=== PATIENT | female | born 2000 | race Caucasian/White ===

== ENCOUNTER 2021-07-24 13:41 | Emergency (ER) | payer MEDICAID, SELFPAY ==
[2021-07-24 13:42] VITALS: BP 130/78; PULSE 111; RESP 16; TEMP 36.7; O2SAT 97; BMI 36.8
--- NOTE | 2021-07-24 13:50 | ED.RN ---
PT. HERE FOR TEST. CAME FROM URGENT CARE AND WAS UNABLE TO AFFORD CO-PAY. PT. JUST MOVED FROM [place] AND NEEDS POSITIVE TEST CONFIRMATION TO GET HELP WITH SUBSIDIZED HOUSING AND MEDICAID SERVICES HERE IN [place].
--- NOTE | 2021-07-24 14:04 | EDS_ITS ---
HPI HPI - Female History of Present Illness Chief Complaint: Informant: patient Narrative Narrative: Patient presents to the ER requesting a test. She states her last menstrual period was on June 19. When she did not start this month she took several home test that she thinks may have been faintly positive. She had some nausea this morning. She denies abdominal cramping or spotting. PFSH PFSH Medical History Diabetes Hypertension Allergy/AdvReac Type Severity Reaction Status Date / Time No Known Allergies Allergy Verified 07/24/21 13:42 Social History Smoking Status: Unknown if ever smoked ROS ROS ED Constitutional Constitutional ED: Denies chills or fever(s) Eyes Eyes: Denies change in vision ENT ENT ED: Denies sore throat Cardiovascular Cardiovascular: Denies chest pain Respiratory/Chest Respiratory/Chest: Denies cough or dyspnea Gastrointestinal Gastrointestinal: Denies abdominal pain, nausea or vomiting Genitourinary Genitourinary ED: Denies dysuria Musculoskeletal Musculoskeletal: Denies back pain Integumentary Denies rash Neurologic Neurologic: Denies headache(s) or weakness Allergic/Immunologic Allergic/Immunologic ED: Denies urticaria EXAM Physical Exam Const Vital Signs: 07/24/21 13:42 Temperature 98.1 F Temperature Source Temporal Pulse Rate 111 H Respiratory Rate 16 Blood Pressure 130/78 H Blood Pressure Mean 95 Pulse Ox 97 Oxygen Delivery Method Room Air Positive well nourished and well developed General Appearance ED: well developed HEENT Reports normocephalic and head/scalp atraumatic Eyes PERRL and EOMs intact bilaterally Neck supple Chest Wall inspection of chest normal and palpation of chest normal Resp normal respiratory effort and clear to auscultation bilaterally Cardio regular rate and regular rhythm GI normal to inspection, nondistended, normoactive bowel sounds Palpation: soft Back/Spine no CVA tenderness Extremity normal to inspection Neuro oriented x3 and no sensory deficits noted Sensorium / Orientation: alert Motor Exam: strength 5/5 throughout Psych mental status grossly normal Skin no rashes or lesions noted MDM MDM MDM Narrative Medical decision making narrative: Urine test obtained here. Lab Data Labs: Laboratory Results - last 24 hr 07/24/21 14:14 Urine Test Positive H Treatment and Re-Evaluation Narrative: Urine test is positive. Patient is having no abdominal cramping or bleeding. She will be referred to Dr. Enriquez, on-call for no doc [employer] to establish care. Discharge Plan Triage Chief Complaint: ED Provider: Jennie Lieberman Dx/Rx/DC Orders Clinical Impression: Early stage of Instructions: ED , New Dx Primary Care Provider: Care Physician,No Primary Referrals: Abbey Chavez MD [STAFF PHYSICIAN] - 1-2 Weeks Care Physician,No Primary [Primary Care Provider] - Disposition Disposition: Home, Self Care
[2021-07-24 14:22] LABS: Internal QC Validated? YES +Cl - CLEAR BKGD
[2021-07-24 14:24] LABS: Pregnancy, Urine Positive Negative
== END 2021-07-24 14:36 | disposition home or self-care (01) ==
PROVIDERS: Emergency Provider Emergency Medicine; Visit Provider Emergency Medicine
DX: Z32.01 Encounter for pregnancy test, result positive (principal)
CPT/HCPCS: 81025; 99282

== ENCOUNTER 2021-08-09 14:00 | Emergency (ER) | payer MEDICAID, SELFPAY ==
[2021-08-09 14:01] VITALS: BP 128/73; PULSE 90; RESP 18; TEMP 36.6; O2SAT 100; BMI 35.2
--- NOTE | 2021-08-09 14:24 | EX.ED.DYSGE1 ---
HPI History of Present Illness Chief Complaint: Substance Abuse Informant: patient Narrative Narrative: 21-year-old female presenting to the emergency department requesting detox from heroin and meth. She states that she is 6 weeks and is working with 180. Patient states that she is not currently having any withdrawal because she smokes marijuana a couple hours before arriving to the ED. She is still smoking cigarettes and drinking alcohol. She is G2, P1. She does not have current visitation with her son [facility] Medical History Diabetes Hypertension Allergy/AdvReac Type Severity Reaction Status Date / Time No Known Allergies Allergy Verified 08/09/21 14:03 Social History (Updated 08/09/21 @ 14:[address] Ad Armenta DO) Smoking Status: Unknown if ever smoked substance use type: marijuana, heroin and methamphetamine ROS ROS ED Constitutional Constitutional ED: Denies chills, fever(s) or weight loss Eyes Eyes: Denies change in vision or diplopia ENT ENT ED: Denies ear pain, rhinorrhea or sore throat Cardiovascular Cardiovascular: Denies chest pain, orthopnea, palpitations or racing heartbeat Respiratory/Chest Respiratory/Chest: Denies cough, dyspnea or orthopnea Gastrointestinal Gastrointestinal: Denies abdominal pain, diarrhea, nausea or vomiting Genitourinary Genitourinary ED: Denies dysuria, hematuria or urinary frequency Musculoskeletal Musculoskeletal: Denies arthralgias or myalgias Integumentary Denies abscess or rash Neurologic Neurologic: Denies headache(s) or weakness Psychiatric Psychiatric: Denies anxiety, depression, suicidal ideation or suicidal thoughts Endocrine Endocrinology: Denies polydipsia, polyphagia or polyuria Allergic/Immunologic Allergic/Immunologic ED: Denies mouth swelling, tongue swelling or urticaria EXAM Physical Exam Const Vital Signs: 08/09/21 14:01 08/09/21 17:29 Temperature 98 F Temperature Source Temporal Pulse Rate 90 89 Respiratory Rate 18 17 Blood Pressure 128/73 H 124/72 H Blood Pressure Mean 91 89 Pulse Ox 100 99 Oxygen Delivery Method Room Air Room Air Positive well nourished, well developed and obese General Appearance ED: well developed Nutritional Appearance: obese HEENT Reports normocephalic, head/scalp atraumatic, TM's clear and moist mucous membranes Negative for trauma Tympanic Membrane ED: Yes TM's clear Eyes PERRL and EOMs intact bilaterally Neck no lymphadenopathy, supple and no JVD Resp normal respiratory effort and clear to auscultation bilaterally Cardio regular rate, regular rhythm and no murmurs GI normal to inspection, nondistended, normoactive bowel sounds and non-tender Palpation: soft Back/Spine no CVA tenderness and normal ROM Extremity normal to inspection General Extremety ED: Negative for edema General Extremity: Negative for edema Neuro oriented x3 and CN's II-XII intact bilaterally Sensorium / Orientation: alert Motor Exam: strength 5/5 throughout Psych mental status grossly normal Mood & Affect: Negative for depressed or tearful Skin no rashes or lesions noted and no wounds MDM MDM MDM Narrative Medical decision making narrative: Screening labs were obtained. White count 8.6 with a hemoglobin of 11.8. Tox screen positive for amphetamines MDMA and THC. Quantitative hCG was obtained and is 15,819. We currently do not provide detox services to patients. [facility] was contacted and has accepted the patient. Lab Data Attestation: I reviewed the patient's lab results. Labs: Laboratory Results - last 24 hr 08/09/21 08/09/21 08/09/21 15:10 15:10 15:10 WBC 8.6 RBC 4.44 Hgb 11.8 L Hct 37.0 MCV 83.3 MCH 26.6 L MCHC 31.9 L RDW Std Deviation 44.2 H RDW Coeff of Ofelia 14.7 H Plt Count 268 MPV 9.3 Immature Gran % (Auto) 0.400 Neut % (Auto) 65.4 Lymph % (Auto) 27.3 [place] % (Auto) 5.1 Eos % (Auto) 1.3 Baso % (Auto) 0.5 Absolute Neuts (auto) 5.6 Absolute Lymphs (auto) 2.34 Nucleated RBC % 0 Sodium 137 Potassium 3.3 L Chloride 104 Carbon Dioxide 27.0 Anion Gap 6 BUN 8 Creatinine 0.60 Estim Creat Clear Calc 127.00 Est GFR (MDRD) Af Amer 162 Est GFR (MDRD) Non-Af 134 BUN/Creatinine Ratio 13.4 Glucose 124 H Calcium 9.4 Total Bilirubin 1.00 AST 5 L ALT 16 Alkaline Phosphatase 57 Total Protein 8.0 Albumin 4.0 Globulin 4.0 Albumin/Globulin Ratio 1.0 HCG, Quant 51122 H Urine Opiates Screen Urine Methadone Screen Ur Barbiturates Screen Ur Phencyclidine Scrn Ur Amphetamines Screen MDMA (Ecstasy) Screen U Benzodiazepines Scrn Urine Cocaine Screen U Cannabinoids Screen Ur Drug Screen Comment Ethyl Alcohol 08/09/21 08/09/21 15:10 15:14 WBC RBC Hgb Hct MCV MCH MCHC RDW Std Deviation RDW Coeff of Ofelia Plt Count MPV Immature Gran % (Auto) Neut % (Auto) Lymph % (Auto) [place] % (Auto) Eos % (Auto) Baso % (Auto) Absolute Neuts (auto) Absolute Lymphs (auto) Nucleated RBC % Sodium Potassium Chloride Carbon Dioxide Anion Gap BUN Creatinine Estim Creat Clear Calc Est GFR (MDRD) Af Amer Est GFR (MDRD) Non-Af BUN/Creatinine Ratio Glucose Calcium Total Bilirubin AST ALT Alkaline Phosphatase Total Protein Albumin Globulin Albumin/Globulin Ratio HCG, Quant Urine Opiates Screen NEGATIVE Urine Methadone Screen NEGATIVE Ur Barbiturates Screen NEGATIVE Ur Phencyclidine Scrn NEGATIVE Ur Amphetamines Screen POSITIVE H MDMA (Ecstasy) Screen POSITIVE H U Benzodiazepines Scrn NEGATIVE Urine Cocaine Screen NEGATIVE U Cannabinoids Screen POSITIVE H Ur Drug Screen Comment Ethyl Alcohol 7.0 Discharge Plan Triage Chief Complaint: Substance Abuse ED Provider: Ad Armenta Dx/Rx/DC Orders Clinical Impression: First trimester , Opiate withdrawal Primary Care Provider: Care Physician,No Primary Referrals: Care Physician,No Primary [Primary Care Provider] - Disposition Disposition: Acute Care Hospital Discharge Location: [facility]
--- NOTE | 2021-08-09 15:10 | CM.ED ---
ELADIO Note Referral Source; RAMP Referral Reason: RAMP SW met with patient. Patient was on the phone texting and social work program coordinator asked her to put the phone down. Patient proceeded to text but then stopped. Patient said that she is homeless and the address of [address] is just a mailing address. Patient said that she uses 1/2 gram of heroin and meth 1 time as I don't like it .. but I used it in the past and stopped. Patient said that [facility] is going to help her with residential program or [facility]. SW asked patient about her plans and she said that she was going to [facility]. SW asked about transportation and patient said [employer]. During the conversation patient again began texting and social work program coordinator asked patient to not text so this real estate underwriter could focus on her and patient said well, I have to focus on my boyfriend. SW called Kavon and updated her regarding patient. Kavon was asked about transport to [place] and Kavon said that she talked to Flora about if patient gets done with detox and is going to the residental program then they will provide her transport from [place] to residential treatment program. Kavon asked this real estate underwriter to speak to patient about if she has ride to [facility]. Kavon inquired if patient's boyfriend will be going with her to [place]. SW spoke to patient. Patient said that she has no one to provide transportation and be a support. Patient said that she is linked with [facility]. SW discussed [facility] and offered to make a [facility] referral. Patient was open to [facility] referral however, patient said that she has only a mailing address and does not know where she will got at discharge from detox. SW discussed [facility] and the programming and stated that since patient is unsure where she will be at discharge SW will provide her with this information about how to make a [facility] referral and she can do it and patient verbalized understanding. Patient said that she would like for her boyfriend to go with her to detox but understands if he can't but would like him to be in the same building. Patient then said that she was scared. Emotional support provided. ELADIO spoke to Kavon from [facility]. [employer] bedoyad that [employer] will cover the cost of a taxi for patient to go to [facility]. She advised to bill [employer]. ELADIO updated MUSA Bello MD, promotional advertising assistantMUSA Sands, community service director that when patient is discharged a taxi can be secured for patient and bill sent to [facility]. Plan: Danielle KING
[2021-08-09 15:18] LABS: Absolute Lymphocyte Count 2.34 X10^3/uL (0.83-4.51); Absolute Neutrophil Count 5.6 X10^3/uL (2.0-7.7); Basophil# 0.04 X10^3/uL; Basophil% 0.5 % (0-1); Eosinophil# 0.11 X10^3/uL; Eosinophils% 1.3 % (0-5); Hemoglobin 11.8 g/dL (12.0-15.0); Lymphocyte # 2.34 X10^3/ul (0.83-4.51); Lymphocyte % 27.3 % (19-41); Mean Corp Hgb Conc 31.9 g/dL (32-36); Mean Corpuscular Hgb 26.6 pg (27.0-32.0); Mean Corpuscular Volume 83.3 fL (81-99); Mean Platelet Vol. 9.3 fl (6.2-12.0); Monocyte# 0.44 X10^3/uL; Monocyte% 5.1 % (0-10); NRBC Flagged by Analyzer 0 % (0-5); Neutrophil % 65.4 % (47-70); Platelet Count 268 K/mm3 (150-450); RBC Distribution Width CV 14.7 % (11.6-14.6); RBC Distribution Width SD 44.2 fl (35.1-43.9); Red Blood Count 4.44 M/mm3 (4.2-5.4); White Blood Count 8.6 K/mm3 (4.4-11.0)
[2021-08-09] MEDS: Acetaminophen 500 MG Tablet 1000 MG PO (15:33)
[2021-08-09 15:37] LABS: AST(SGOT) 5 U/L (15-37); Alanine Aminotransfer ALT/SGPT 16 U/L (13-56); Alkaline Phosphatase 57 U/L (45-117); Anion Gap 6 (5-15); BUN 8 mg/dL (7-18); BUN/Creat Ratio 13.4 RATIO (10-20); Calcium,Total 9.4 mg/dL (8.5-10.1); Chloride 104 mmol/L (98-107); EST Glomerular Filtration Rate 134 mL/min (>60); Est Glom Filt Rate - Afr Amer 162 mL/min (>60); Glucose 124 mg/dL (74-106); Potassium 3.3 mmol/L (3.5-5.1); Sodium Level 137 mmol/L (136-145)
[2021-08-09 15:42] LABS: Amphetamine Urine VISTA POSITIVE (<1000 ng/mL); Barbiturate Urine VISTA NEGATIVE (< 200 ng/mL); Benzodiazepine Urine VISTA NEGATIVE (< 200 ng/mL); Cocaine Urine VISTA NEGATIVE (< 300 ng/mL); Ecstacy Urine VISTA POSITIVE (< 500 ng/mL); Methadone Urine VISTA NEGATIVE (< 300 ng/mL); PCP Urine VISTA NEGATIVE (< 25 ng/mL); THC Urine VISTA POSITIVE (< 50 ng/mL); Vista UDS pH Range 4
[2021-08-09 17:03] LABS: hCG Titer Quant., Serum 15819 mIU/mL (1-3)
[2021-08-09 17:29] VITALS: BP 124/72; PULSE 89; RESP 17; O2SAT 99
--- NOTE | 2021-08-09 18:23 | CM.ED ---
ELADIO was advised by Julia that [facility] needs [employer] to call for approval to pay for cab to [facility]. ELADIO called Casi, treatment Navigator and requested that she call [facility] for patient to go to [facility]. ELADIO was advised that [employer] had called [facility]. ELADIO confirmed with Julia that patient is going to [facility] as Casi called back to ensure that patient goes to [facility] ED. Casi said that they generally put detox on antepartum unit. Plan: [facility] Ani KING
== END 2021-08-09 18:55 | disposition short-term general hospital (02) ==
PROVIDERS: Emergency Provider Emergency Medicine; Visit Provider Emergency Medicine
DX: O99.321 Drug use complicating pregnancy, first trimester (principal); F11.23 Opioid dependence with withdrawal; F12.90 Cannabis use, unspecified, uncomplicated; Z3A.01 Less than 8 weeks gestation of pregnancy; O99.211 Obesity complicating pregnancy, first trimester; E66.9 Obesity, unspecified
CPT/HCPCS: 80053; 80307; 82077; 84702; 85025; 87426; 99285

== ENCOUNTER 2021-09-28 11:08 | Emergency (ER) | payer MEDICAID, SELFPAY ==
[2021-09-28 11:09] VITALS: BP 138/89; PULSE 76; RESP 16; TEMP 36.8; O2SAT 100; BMI 36.8
--- NOTE | 2021-09-28 11:29 | EDS_ITS ---
HPI History of Present Illness Chief Complaint: Rash Informant: patient Onset/Context/Timing Onset: Today Current Severity: Mild Maximum Severity: Mild Narrative Narrative: Patient presents with petechial rash on her face and neck that she noted this morning. No pain. She is currently 13 weeks states that she has been vomiting quite a bit recently. [facility] Medical History Diabetes Hypertension Home Medications aspirin 81 mg capsule 81 mg PO DAILY 09/28/21 [History Last Taken Unknown] vit no.95-ferrous fumarate 28 mg-folic acid 800 mcg tablet () 1 tab PO DAILY 09/28/21 [History Last Taken Unknown] Allergy/AdvReac Type Severity Reaction Status Date / Time No Known Allergies Allergy Verified 09/28/21 11:11 Social History Smoking Status: Current every day smoker tobacco type: cigarettes substance use type: marijuana, heroin and methamphetamine ROS ROS ED Constitutional Constitutional ED: Denies chills or fever(s) Eyes Eyes: Denies change in vision or discharge from eye(s) ENT ENT ED: Denies discharge from eye(s), rhinorrhea or sore throat Cardiovascular Cardiovascular: Denies chest pain or palpitations Respiratory/Chest Respiratory/Chest: Denies cough or dyspnea Gastrointestinal Gastrointestinal: Reports nausea and vomiting; Denies abdominal pain or diarrhea Genitourinary Genitourinary ED: Denies difficulty urinating or dysuria Musculoskeletal Musculoskeletal: Denies back pain or extremity pain Integumentary Reports rash; Denies Abrasions Neurologic Neurologic: Denies headache(s) or weakness Psychiatric Psychiatric: Denies anxiety or depression Allergic/Immunologic Allergic/Immunologic ED: Denies lip swelling or urticaria EXAM Physical Exam Const Vital Signs: 09/28/21 11:09 Temperature 98.3 F Temperature Source Temporal Pulse Rate 76 Respiratory Rate 16 Blood Pressure 138/89 H Blood Pressure Mean 105 Pulse Ox 100 Oxygen Delivery Method Room Air Positive well nourished and well developed General Appearance ED: well developed HEENT Reports moist mucous membranes Chest Wall inspection of chest normal and palpation of chest normal Resp normal respiratory effort and clear to auscultation bilaterally Cardio regular rate and regular rhythm GI normal to inspection, nondistended, normoactive bowel sounds and non-tender Neuro oriented x3 Skin Skin Narrative: Petechial lesions noted on the face and neck. This is most likely secondary to her vomiting. MDM MDM MDM Narrative Medical decision making narrative: Secondary to the patient's petechiae a CBC was obtained to ensure normal platelet count. Lab Data Labs: Laboratory Results - last 24 hr 09/28/21 11:35 WBC 8.7 RBC 4.16 L Hgb 10.7 L Hct 34.0 L MCV 81.7 MCH 25.7 L MCHC 31.5 L RDW Std Deviation 45.1 H RDW Coeff of Ofelia 15.3 H Plt Count 261 MPV 8.6 Immature Gran % (Auto) 0.500 Neut % (Auto) 68.4 Lymph % (Auto) 23.4 Person % (Auto) 5.5 Eos % (Auto) 1.7 Baso % (Auto) 0.5 Absolute Neuts (auto) 6.0 Absolute Lymphs (auto) 2.04 Nucleated RBC % 0 Treatment and Re-Evaluation Narrative: CBC is unremarkable with platelet count of 261,000. Patient has Zofran at home that she can use for nausea. Discharge Plan Triage Chief Complaint: Rash ED Provider: Jennie Lieberman Dx/Rx/DC Orders Clinical Impression: Petechial rash, Vomiting Instructions: ED Vomiting (Adult), ED Petechiae (Child) Prescriptions: No Action PNV cmb#95-ferrous fumarate-FA [] 28 mg iron- 800 mcg tablet 1 tab PO DAILY aspirin 81 mg Capsule 81 mg PO DAILY Primary Care Provider: Care Physician,No Primary Referrals: Abbey Chavez MD [STAFF PHYSICIAN] - Keep [facility] appointment Care Physician,No Primary [Primary Care Provider] - Disposition Disposition: Home, Self Care
[2021-09-28 11:43] LABS: Absolute Lymphocyte Count 2.04 X10^3/uL (0.83-4.51); Basophil# 0.04 X10^3/uL; Basophil% 0.5 % (0-1); Eosinophil# 0.15 X10^3/uL; Eosinophils% 1.7 % (0-5); Hemoglobin 10.7 g/dL (12.0-15.0); Lymphocyte # 2.04 X10^3/ul (0.83-4.51); Lymphocyte % 23.4 % (19-41); Mean Corp Hgb Conc 31.5 g/dL (32-36); Mean Corpuscular Hgb 25.7 pg (27.0-32.0); Mean Corpuscular Volume 81.7 fL (81-99); Mean Platelet Vol. 8.6 fl (6.2-12.0); Monocyte# 0.48 X10^3/uL; Monocyte% 5.5 % (0-10); NRBC Flagged by Analyzer 0 % (0-5); Neutrophil # 5.96 X10^3/uL (2.7-7.7); Neutrophil % 68.4 % (47-70); Platelet Count 261 K/mm3 (150-450); RBC Distribution Width CV 15.3 % (11.6-14.6); RBC Distribution Width SD 45.1 fl (35.1-43.9); Red Blood Count 4.16 M/mm3 (4.2-5.4); White Blood Count 8.7 K/mm3 (4.4-11.0)
[2021-09-28 12:36] VITALS: RESP 16
== END 2021-09-28 12:37 | disposition home or self-care (01) ==
PROVIDERS: Emergency Provider Emergency Medicine; Visit Provider Emergency Medicine
DX: O99.891 Other specified diseases and conditions complicating pregnancy (principal); R23.3 Spontaneous ecchymoses; O21.9 Vomiting of pregnancy, unspecified; O99.331 Smoking (tobacco) complicating pregnancy, first trimester; F17.210 Nicotine dependence, cigarettes, uncomplicated; Z3A.13 13 weeks gestation of pregnancy; Z79.82 Long term (current) use of aspirin
CPT/HCPCS: 85025; 99282

== ENCOUNTER → 2022-01-12 | Outpatient (CLI) | payer MEDICAID, SELFPAY ==
[2022-01-12 16:03] VITALS: BP 130/88; PULSE 109; RESP 14; TEMP 36.4; O2SAT 100; BMI 39.6
[2022-01-12] MEDS: Penicillin G Benzathine 2.4 MU/4 ML Syringe IM (16:09)
== END | disposition home or self-care (01) ==
LOC: MEDOUTP 15:56
PROVIDERS: Referring Provider Obstetrics & Gynecology; Visit Provider Obstetrics & Gynecology
DX: O98.119 Syphilis complicating pregnancy, unspecified trimester (principal)
CPT/HCPCS: 96372

== ENCOUNTER 2022-03-01 16:35 | Outpatient (CLI) | payer MEDICAID, SELFPAY ==
[2022-03-01] VITALS (20 sets, daily range): BP systolic 127–156; BP diastolic 58–75; PULSE 100–133; TEMP 36.2–36.6; O2SAT 93–98; BMI 40.8
[2022-03-01 17:33] LABS: Hematocrit 33.7 % (37-47); Hemoglobin 10.7 g/dL (12.0-15.0); Mean Corp Hgb Conc 31.8 g/dL (32-36); Mean Corpuscular Volume 78.7 fL (81-99); Mean Platelet Vol. 9.5 fl (6.2-12.0); Platelet Count 253 K/mm3 (150-450); RBC Distribution Width CV 14.7 % (11.6-14.6); RBC Distribution Width SD 41.8 fl (35.1-43.9); Red Blood Count 4.28 M/mm3 (4.2-5.4); White Blood Count 9.4 K/mm3 (4.4-11.0)
[2022-03-01 17:45] LABS: Protein, Urine (Random) 24.3 mg/dL (<11.9); Protein:Creat Ratio 100 mg/g CRE (0-200)
[2022-03-01 17:48] LABS: Amphetamine Urine VISTA NEGATIVE (<1000 ng/mL); Barbiturate Urine VISTA NEGATIVE (< 200 ng/mL); Benzodiazepine Urine VISTA NEGATIVE (< 200 ng/mL); Cocaine Urine VISTA NEGATIVE (< 300 ng/mL); Ecstacy Urine VISTA NEGATIVE (< 500 ng/mL); Methadone Urine VISTA NEGATIVE (< 300 ng/mL); PCP Urine VISTA NEGATIVE (< 25 ng/mL); THC Urine VISTA POSITIVE (< 50 ng/mL); Vista UDS pH Range 4
[2022-03-01 18:45] LABS: AST(SGOT) 3 U/L (15-37); Alanine Aminotransfer ALT/SGPT 12 U/L (13-56); Creatinine, Serum 0.52 mg/dL (0.55-1.02); EST Glomerular Filtration Rate 154 mL/min (>60); Est Glom Filt Rate - Afr Amer 187 mL/min (>60); Estimated Creatinine Clearance 146.54 ml/min
--- NOTE | 2022-03-01 19:59 | OB.TRI.HP_ITS ---
HPI - General HPI Narrative CLAIR BRADY, is a 21 F at 35.1 weeks gestation who presents with a headache that started earlier today. She denies any visual changes, RUQ pain or swelling. Patient seen at bedside for evaluation. Maternal Data Information DANTE Calculator Estimated Delivery Date Method Current WG Current Estimate 04/04/22 Manual 35w 1d PFSH PFSH Medical History Diabetes Hypertension Home Medications aspirin 81 mg capsule 81 mg PO DAILY 09/28/21 [History Last Taken 02/24/22] vit no.95-ferrous fumarate 28 mg-folic acid 800 mcg tablet () 1 tab PO DAILY 09/28/21 [History Last Taken 02/24/22] Allergy/AdvReac Type Severity Reaction Status Date / Time No Known Allergies Allergy Verified 03/01/22 20:16 Social History Smoking Status: Current every day smoker tobacco type: cigarettes substance use type: marijuana, heroin and methamphetamine OB Visit Details Medical History Medical History: Positive: Diabetes and Hypertension Visit Details OB Flowsheet Initial Weight: Not Recorded Date -?-?-?-?-?-?-?-?-?-?-?-?- EGA Weight BP Urine Prot -?-?-?-?-?-?-?-?-?-?-?-?- Glucose FHR FuHt Pres Dilation -?-?-?-?-?-?-?-?-?-?-?-?- Effaced St Visit Note 03/01/22 -?-?-?-?-?-?-?-?-?-?-?-?- 35w 1d 238 lb 1.588 oz 127/ 67 131/58 151/67 139/65 127/58 135/63 156/75 149/66 130/72 136/65 -?-?-?-?-?-?-?-?-?-?-?-?- -?-?-?-?-?-?-?-?-?-?-?-?- ROS Eyes Eyes: Denies blurry vision Cardiovascular Cardiovascular: Reports none; Denies chest pain at rest, chest pain with activity or dizziness Respiratory/Chest Respiratory/Chest: Denies cough or dyspnea Gastrointestinal Gastrointestinal: Reports none and other; Denies diarrhea or vomiting Genitourinary Genitourinary: Denies dysuria Musculoskeletal Musculoskeletal: Reports none Integumentary Integumentary: Reports none; Denies rash Neurologic Neurologic: Denies dizziness, headache(s) or other visual disturbances Psychiatric Psychiatric: Reports none Physical Exam Const alert and no apparent distress General Appearance: cooperative Orientation / Consciousness: awake Exam Limitations: no limitations HEENT normocephalic Eyes General Eye: normal appearance of both eyes Neck full ROM Chest inspection of chest normal Resp normal respiratory effort and normal air movement Effort and Inspection: symmetric chest movement Auscultation: clear to auscultation bilaterally Cardio regular rate GI soft to palpation, non-tender and non-distended Inspection: and other Back/Spine normal ROM Extremity full ROM, normal capillary refill and no calf tenderness Skin no rashes or lesions noted Neuro oriented x3 and CN's II-XII intact bilaterally Psych mental status grossly normal NST FHR Rate Baby A Baseline: 140 Variability:: Moderate Accelerations:: 15 x 15 Decelerations:: None NST Reactive:: Yes Uterine Activity:: irritability Assessment & Plan (1) Headache: (2) 35 weeks gestation of : (3) Type 2 diabetes mellitus: (4) Chronic hypertension: (5) History of pre-eclampsia: (6) Obesity: (7) Tobacco use affecting , antepartum: (8) History of drug use: (9) Marijuana use during : PLAN: Plan BP within normal ranges PIH labs negative Tylenol 1000 mg PO x 1 now for headache NST reactive Hx of Chronic HTN and Type 2 DM- no medications or monitoring D/C home with follow up this week in office for NST/BRISA PTL and preeclampsia precautions reviewed with patient
== END 2022-03-01 20:13 | disposition home or self-care (01) ==
LOC: WPOUT 16:38 → WP 16:39
PROVIDERS: Visit Provider Advanced Practice Midwife
DX: O99.891 Other specified diseases and conditions complicating pregnancy (principal); F12.99 Cannabis use, unspecified with unspecified cannabis-induced disorder; O99.323 Drug use complicating pregnancy, third trimester; R51.9 Headache, unspecified; O24.113 Pre-existing type 2 diabetes mellitus, in pregnancy, third trimester; O10.913 Unspecified pre-existing hypertension complicating pregnancy, third trimester; O99.213 Obesity complicating pregnancy, third trimester; O99.333 Smoking (tobacco) complicating pregnancy, third trimester; F17.210 Nicotine dependence, cigarettes, uncomplicated; Z3A.35 35 weeks gestation of pregnancy; Z79.82 Long term (current) use of aspirin; Z87.59 Personal history of other complications of pregnancy, childbirth and the puerperium
CPT/HCPCS: 36415; 59025; 59050; 80307; 82565; 82570; 84156; 84450; 84460; 84550; 85027; 99218; G0378

== ENCOUNTER 2022-03-10 01:47 | Outpatient (CLI) | payer MEDICAID, SELFPAY ==
[2022-03-10 02:16] VITALS: PULSE 115; O2SAT 97
[2022-03-10 02:21] VITALS: BP 118/58; PULSE 108
[2022-03-10 02:38] VITALS: BMI 40.9
[2022-03-10] MEDS: Lactated Ringers 1,000 ML 999 ML IV (03:45)
[2022-03-10 03:55] LABS: Color, Urine Yellow (Yellow); Glucose, Dipstick 50 mg/dl (Normal); Ketone-Dipstick 5 mg/dl (Negative); Leukocyte Esterase-Dipstick 25 /ul (Negative); Nitrite-Dipstick Negative (Negative); Occult Blood-Urine Negative /ul (Negative); Protein-Dipstick 15 mg/dl (Negative); Specific Gravity, Urine 1.025 (1.002-1.030); Urine Bilirubin Dipstick Negative (Negative); Urine Clarity Clear (Clear); Urine Urobilinogen Normal (Normal)
[2022-03-10] MEDS: Acetaminophen 500 MG Tablet 1000 MG PO (03:56)
[2022-03-10 04:04] LABS: Amphetamine Urine VISTA NEGATIVE (<1000 ng/mL); Barbiturate Urine VISTA NEGATIVE (< 200 ng/mL); Benzodiazepine Urine VISTA NEGATIVE (< 200 ng/mL); Cocaine Urine VISTA NEGATIVE (< 300 ng/mL); Ecstacy Urine VISTA NEGATIVE (< 500 ng/mL); Methadone Urine VISTA NEGATIVE (< 300 ng/mL); PCP Urine VISTA NEGATIVE (< 25 ng/mL); THC Urine VISTA POSITIVE (< 50 ng/mL); Vista UDS pH Range 5
--- NOTE | 2022-03-10 07:08 | OB.TRI.NOTE ---
HPI - General HPI Narrative CLAIR BRADY, is a 21 F at 36 weeks gestation who presents with lower back pain and pelvic cramping that started yesterday. She stated she has been nauseated and had several emesis today. Has not been eating or drinking much. Positive movement. Denies any loss of fluid or vaginal bleeding. Maternal Data Information DANTE Calculator Estimated Delivery Date Method Current WG Current Estimate 04/04/22 Manual 37w 0d PFSH PFSH Medical History Diabetes Hypertension Home Medications aspirin 81 mg capsule 81 mg PO DAILY 09/28/21 [History Last Taken 02/24/22] vit no.95-ferrous fumarate 28 mg-folic acid 800 mcg tablet () 1 tab PO DAILY 09/28/21 [History Last Taken 03/09/22] Allergy/AdvReac Type Severity Reaction Status Date / Time No Known Allergies Allergy Verified 03/10/22 02:39 Social History Smoking Status: Current every day smoker tobacco type: cigarettes substance use type: marijuana, heroin and methamphetamine ROS Eyes Eyes: Denies blurry vision Cardiovascular Cardiovascular: Reports none; Denies chest pain at rest, chest pain with activity or dizziness Respiratory/Chest Respiratory/Chest: Denies cough or dyspnea Gastrointestinal Gastrointestinal: Reports other Genitourinary Genitourinary: Denies dysuria Musculoskeletal Musculoskeletal: Reports none Integumentary Integumentary: Reports none; Denies rash Neurologic Neurologic: Denies dizziness, headache(s) or other visual disturbances Psychiatric Psychiatric: Reports none Physical Exam Const alert and no apparent distress General Appearance: cooperative Orientation / Consciousness: awake Exam Limitations: no limitations HEENT normocephalic Eyes General Eye: normal appearance of both eyes Neck full ROM Chest inspection of chest normal Resp normal respiratory effort and normal air movement Effort and Inspection: symmetric chest movement Auscultation: clear to auscultation bilaterally Cardio regular rate GI soft to palpation, non-tender and non-distended Inspection: and other Back/Spine normal ROM Extremity full ROM, normal capillary refill and no calf tenderness Skin no rashes or lesions noted Neuro oriented x3 and CN's II-XII intact bilaterally Psych mental status grossly normal Assessment & Plan (1) Marijuana use during : (2) Tobacco use affecting , antepartum: (3) Obesity: (4) History of pre-eclampsia: (5) 36 weeks gestation of : (6) Back pain: (7) Cramping affecting , antepartum: PLAN: Plan Start IV fluids and give LR 1000 ml- dehydration UA- positive for ketones, glucose CE- unchanged after prolonged monitoring NST reactive, cat. 1 tracing Patient reports feeling better after IV fluids D/C home with follow up in office this week
[2022-03-10 07:43] LABS: Group B Strep DNA By PCR POSITIVE (Negative); Probe Check PASS
== END 2022-03-10 05:44 | disposition home or self-care (01) ==
LOC: WPOUT 01:51 → WP 01:52
PROVIDERS: Visit Provider Advanced Practice Midwife
DX: O26.893 Other specified pregnancy related conditions, third trimester (principal); E11.9 Type 2 diabetes mellitus without complications; O99.331 Smoking (tobacco) complicating pregnancy, first trimester; M54.9 Dorsalgia, unspecified; E66.9 Obesity, unspecified; O99.211 Obesity complicating pregnancy, first trimester; F17.210 Nicotine dependence, cigarettes, uncomplicated; Z3A.36 36 weeks gestation of pregnancy; R25.2 Cramp and spasm
CPT/HCPCS: 96374; 96361; 59025; 59050; 80307; 81002; 87653; J7120

== ENCOUNTER 2022-03-17 07:08 | Inpatient (IN) | payer MEDICAID, SELFPAY ==
[2022-03-17] VITALS (47 sets, daily range): BP systolic 96–147; BP diastolic 42–97; PULSE 83–125; RESP 16–18; TEMP 35.9–36.7; O2SAT 91–99; BMI 41.7
--- NOTE | 2022-03-17 | PLAC_PTH ---
PATIENT: CLAIR BRADY LOC: [facility] U#:[id number] AGE/SX: 21/ ROOM: WP003 RE03/17/[address]: Dr. Margaret Toscano DO : 2000 BED: 1 DIS: 03/20/2022 SPEC #: [id number] RECD: 03/17/22 23:12 STATUS: NACHO REQ #: [id number] TOBI: 03/17/22 00:[address]: Margaret Toscano DEPT: SURGICAL PATHOLOGY RECD BY: Neal Acevedo ENTERED: 03/18/22 14:00 SP TYPE: PLACENTA OTHR DR: MD Dr. Abbey Vazquez MD Dr. Robert Leininger, MD No Primary Care Phys Tissues: Placenta, NOS Procedures: Surgery Specimen Level V HEADER OPERATION: Primary section PRE-OP DIAGNOSIS: Uncontrolled diabetes TISSUE SUBMITTED: Placenta MICROSCOPIC DIAGNOSIS Placenta: Placental disc - third trimester placenta (561 gm). Membranes - no pathologic diagnosis. Umbilical cord - three blood vessels and no pathologic diagnosis. DAVID:helder 03/23/2022 MICROSCOPIC DESCRIPTION Slides are reviewed. GROSS DESCRIPTION SPECIMEN: PLACENTA / CLINICAL INFORMATION: A. Weight: 3.04 kg B. Gestational Age: 37 weeks C. Sex: Female PLACENTAL WEIGHT (POST FIXATION): 561 gm PLACENTAL DIMENSIONS: 16 x 14 x 5 cm PLACENTAL SHAPE: Usual ovoid PLACENTAL WEIGHT FOR GESTATIONAL AGE: Within 10-99th percentile MEMBRANES - Present A. Insertion: Marginal B. Site of rupture from edge: At edge of placental disc C. Color of membrane: Garcia-toney D. Abnormalities: None UMBILICAL CORD - Present A. Color: Garcia-toney B. Insertion: Central C. Length: 37 cm D. Diameter: 1.1 cm E. Number of vessels: Three F. Abnormalities: Slight increased spiraling is noted. PLACENTAL DISC - Present A. Color of surface: Garcia-toney B. surface abnormalities: None C. Maternal cotyledons: Intact with minimal tears D. Attached retro placental clot: No clot E. Cut surface: Dark red and spongy F. Lesions: None G. Separate clot: Absent SECTIONS SUBMITTED: 1. Membrane roll 2. Cord, maternal end 3. Cord, end 4. Placental disc, and maternal surfaces 5. Placental disc, and maternal surfaces 6. Placental disc, and maternal surfaces SJ:helder 03/22/2022 TC:4 CPT: 96656
--- NOTE | 2022-03-17 08:26 | PCM.HP.OB ---
HPI - General General Date of Admission: 03/17/22 Date of Service: 03/17/22 Chief Complaint: induction HPI Narrative CLAIR BRADY, is a 21 F who presents for a scheduled induction of labor. at 37w3d. She offers no complaints today. Denies AGUILAR, vision changes, upper abd pain, ctx, vb, lof. Good FM. Maternal Data Information DANTE Calculator Estimated Delivery Date Method Current WG Current Estimate 04/04/22 Manual 37w 3d PFSH PFS Medical History Diabetes Hypertension Home Medications aspirin 81 mg capsule 81 mg PO DAILY pre-eclampsia 09/28/21 [History Last Taken 02/24/22] vit no.95-ferrous fumarate 28 mg-folic acid 800 mcg tablet () 1 tab PO DAILY 09/28/21 [History Last Taken 03/09/22] Allergy/AdvReac Type Severity Reaction Status Date / Time No Known Allergies Allergy Verified 03/17/22 08:01 Social History Smoking Status: Heavy Smoker (>10/day) substance use type: marijuana, heroin and methamphetamine History Elective abortions Hx Para 1 Spontaneous abortions Hx # Term Pregnancies Ectopic pregnancies Hx # Pregnancies Multiple births # of living children Addt'l History: Limited care in the office with housing and transportation issues. Social work was never able to contact the patient. History of type 2 diabetes: She did not check blood sugars during the , and therefore was not on medication. Most recent Hgb a1c 5.7 and random glucose 127. History of bipolar disorder: Has not been on medication or well establish with psych. History of cHTN: baby ASA in , not on medication. History of drug use: Meth, heroin, and ecstasy. History of Syphilis in : Was treated 12/2021 and most recent titer 1:4. Vital Signs Vital Signs Vital Signs: 03/17/22 07:57 03/17/22 07:57 03/17/22 07:57 Temperature Temperature Source Pulse Rate 108 H Blood Pressure 126/70 H BP Systolic 126 BP Diastolic 70 Pulse Ox 98 03/17/22 07:57 03/17/22 07:57 Temperature 97.0 F L Temperature Source Temporal Pulse Rate Blood Pressure BP Systolic BP Diastolic Pulse Ox Weight Weight: 242 lb 15.19 oz Body Mass Index (BMI) 41.7 Labs Labs Labs: Hct 33.7 % (37-47) L Hgb 10.7 g/dL (12.0-15.0) L Group B Strep DNA POSITIVE (Negative) H Assessment & Plan (1) 37 weeks gestation of : PLAN: - Discussed r/b/a to induction of labor and pt desires to proceed. High risk with limited care (2) Type 2 diabetes mellitus: PLAN: - Was not monitoring BG during - Diabetic protocol - Discussed may need insulin gtt (3) History of pre-eclampsia: PLAN: - Pre e labs on admission - No symptoms of pre e (4) Chronic hypertension: PLAN: - BP normal on admission (5) Obesity: (6) Tobacco use affecting , antepartum: (7) History of drug use: PLAN: - Drug screen on admission (8) Marijuana use during : (9) History of syphilis: PLAN: - Consult placed to ID - Co management with MFM during and RPR titers were followed (10) History of chlamydia: PLAN: - CRUZ negative - GC/CT on admission (11) Limited care: PLAN: - Social work to see (12) History of herpes genitalis: PLAN: - Pt not on prophylaxis - She denies prodromal symptoms or active outbreak. No HSV lesions seen on exam today (13) History of bipolar disorder: (14) History of hemorrhage: (15) Encounter for planned induction of labor: PLAN: - Start pitocin per protocol - Epidural PRN - Vertex on admission - Expected EFW < 4500 g and pelvis adequate. Anticipate vaginal delivery - Rapid GBS and GBS cx given status unknown
[2022-03-17 08:38] LABS: Protein, Urine (Random) 17.1 mg/dL (<11.9); Protein:Creat Ratio 108 mg/g CRE (0-200)
[2022-03-17] MEDS: Lactated Ringers 1,000 ML 50 ML IV (08:41)
[2022-03-17 08:42] LABS: Amphetamine Urine VISTA NEGATIVE (<1000 ng/mL); Barbiturate Urine VISTA NEGATIVE (< 200 ng/mL); Benzodiazepine Urine VISTA NEGATIVE (< 200 ng/mL); Cocaine Urine VISTA NEGATIVE (< 300 ng/mL); Ecstacy Urine VISTA NEGATIVE (< 500 ng/mL); Methadone Urine VISTA NEGATIVE (< 300 ng/mL); PCP Urine VISTA NEGATIVE (< 25 ng/mL); THC Urine VISTA POSITIVE (< 50 ng/mL); Vista UDS pH Range 5
[2022-03-17 08:55] LABS: Absolute Lymphocyte Count 1.83 X10^3/uL (0.83-4.51); Basophil# 0.03 X10^3/uL; Basophil% 0.3 % (0-1); Eosinophil# 0.22 X10^3/uL; Eosinophils% 2.3 % (0-5); Hematocrit 32.7 % (37-47); Hemoglobin 10.4 g/dL (12.0-15.0); Lymphocyte # 1.83 X10^3/ul (0.83-4.51); Lymphocyte % 18.8 % (19-41); Mean Corp Hgb Conc 31.8 g/dL (32-36); Mean Corpuscular Hgb 25.1 pg (27.0-32.0); Mean Platelet Vol. 10.2 fl (6.2-12.0); Monocyte# 0.55 X10^3/uL; Monocyte% 5.7 % (0-10); NRBC Flagged by Analyzer 0 % (0-5); Neutrophil # 7.04 X10^3/uL (2.7-7.7); Neutrophil % 72.4 % (47-70); Platelet Count 238 K/mm3 (150-450); RBC Distribution Width CV 15.1 % (11.6-14.6); RBC Distribution Width SD 43.4 fl (35.1-43.9); Red Blood Count 4.14 M/mm3 (4.2-5.4); White Blood Count 9.7 K/mm3 (4.4-11.0)
[2022-03-17] MEDS: 0.9% Saline Lock 10 ML Syringe IV (09:00)
[2022-03-17 09:08] LABS: AST(SGOT) 5 U/L (15-37); Alanine Aminotransfer ALT/SGPT 9 U/L (13-56); Creatinine, Serum 0.41 mg/dL (0.55-1.02); EST Glomerular Filtration Rate 204 mL/min (>60); Est Glom Filt Rate - Afr Amer 247 mL/min (>60); Estimated Creatinine Clearance 185.85 ml/min; Uric Acid 3.5 mg/dL (2.6-6.0)
[2022-03-17] MEDS: Oxytocin 15 Units/NS 250ml 15 UNITS/250 ML IV.SOLN 2 UNITS IV (09:13)
[2022-03-17 09:20] LABS: Bedside Glucose 146 mg/dL (74-106)
[2022-03-17 09:20] LABS: Bedside Glucose 191 mg/dL (74-106)
[2022-03-17 09:58] LABS: HIV - WCH Non-Reactive (Nonreactive)
[2022-03-17 10:01] LABS: Hepatitis C Antibody REACTIVE (Nonreactive); Syphilis Antibodies Reactive
[2022-03-17 10:31] LABS: Group B Strep DNA By PCR Negative (Negative); Internal Control PASS; Probe Check PASS; Specimen Processing Control PASS
[2022-03-17 10:32] LABS: Chlamydia Trachomatis by PCR Negative (Negative); Neisserai gonorrhoeae by PCR Negative (Negative); Probe Check PASS; Sample Adequacy Control PASS; Specimen Processing Control PASS
[2022-03-17 10:35] LABS: Bedside Glucose 118 mg/dL (74-106)
--- NOTE | 2022-03-17 10:42 | PCM.CONS.GEN ---
Assessment & Plan Assessment/Plan (1) Syphilis affecting : PLAN: past h/o IVDU, presented for scheduled induction, at 37 weeks. Reviewed [facility] labs. 07/2021 neg for HIV, hep C Ab (+) but pcr neg consistent with cleared infection. 12/2021 noticed sore on labia, syphilis (+) 1:8. Given dose of IM PCN at ob clinic and po course of azithro for chlamydia (+) at that time. Denies any rash, fever, headache. Sore on labia resolved. Repeat titer 03/04/22 was 1:4. Labs sent this AM, will add on HIV test. Recommend baby be evaluated for congenital syphilis, but should be low risk given appropriate treatment during . Will follow as needed, thank you HPI Consult Data Date of Consult: 03/17/22 HPI Narrative Reason for Consultation: h/o syphilis HPI Narrative: CLAIR BRADY, is a 21 F with past h/o IVDU, presented for scheduled induction, at 37 weeks. 07/2021 neg for HIV, hep C Ab (+) but pcr neg. Gc/ch (+) at that time. 12/2021 noticed sore on labia, syphilis (+) 1:8. Given dose of IM PCN at ob clinic and po course of azithro for chlamydia (+) at that time. Denies any rash, fever, headache. Sore on labia resolved. No sexual activity for a few months now. Full ROS performed and neg except as noted above. [facility] Medical History (Updated 03/17/22 @ 10:[address] Cassius Aguirre MD) Anxiety Chlamydia infection affecting Depression Diabetes Genital herpes affecting Gonorrhea affecting Hepatitis Hypertension hemorrhage Psychiatric disorder Syphilis affecting Home Medications aspirin 81 mg capsule 81 mg PO DAILY pre-eclampsia 09/28/21 [History Last Taken 02/24/22] vit no.95-ferrous fumarate 28 mg-folic acid 800 mcg tablet () 1 tab PO DAILY 09/28/21 [History Last Taken 03/09/22] Allergy/AdvReac Type Severity Reaction Status Date / Time No Known Allergies Allergy Verified 03/17/22 08:01 Surgical History (Updated 03/17/22 @ 09:36 by Kavon Ayon) History of surgery Social History Smoking Status: Heavy Smoker (>10/day) substance use type: marijuana, heroin and methamphetamine Physical Exam Const alert, oriented x3 and no apparent distress General Appearance: cooperative HEENT normocephalic and head/scalp atraumatic Eyes PERRL and EOMs intact bilaterally Neck supple and No nodes Resp normal air movement and clear to auscultation bilaterally Cardio regular rate and regular rhythm GI soft to palpation and non-tender GI Narrative: gravid Extremity General Extremity: Negative for edema Skin no rashes or lesions noted Neuro CN's II-XII intact bilaterally Lab / Micro Data Attestation: I reviewed the patient's lab results. Result Diagrams: 03/17/22 08:40 03/17/22 08:40 Labs: Laboratory Results - last 24 hr 03/17/22 07:56: POC Glucose 191 H 03/17/22 08:05: Chlam trachomat DNA PCR Negative, N.gonorrhoeae DNA (PCR) Negative, Group B Strep DNA Negative, Specimen Comment Not Reportable 03/17/22 08:10: Urine Opiates Screen NEGATIVE, Urine Methadone Screen NEGATIVE, Ur Barbiturates Screen NEGATIVE, Ur Phencyclidine Scrn NEGATIVE, Ur Amphetamines Screen NEGATIVE, MDMA (Ecstasy) Screen NEGATIVE, U Benzodiazepines Scrn NEGATIVE, Urine Cocaine Screen NEGATIVE, U Cannabinoids Screen POSITIVE H, Ur Drug Screen Comment 03/17/22 08:10: U Random Total Protein 17.1 H, Urine Creatinine 158.00, Protein/Creatinin Ratio 108 03/17/22 08:40: WBC 9.7, RBC 4.14 L, Hgb 10.4 L, Hct 32.7 L, MCV 79.0 L, MCH 25.1 L, MCHC 31.8 L, RDW Std Deviation 43.4, RDW Coeff of Ofelia 15.1 H, Plt Count 238, MPV 10.2, Immature Gran % (Auto) 0.500, Neut % (Auto) 72.4 H, Lymph % (Auto) 18.8 L, Tensas % (Auto) 5.7, Eos % (Auto) 2.3, Baso % (Auto) 0.3, Absolute Neuts (auto) 7.0, Absolute Lymphs (auto) 1.83, Nucleated RBC % 0 03/17/22 08:40: Blood Type B POSITIVE, Antibody Screen NEGATIVE 03/17/22 08:40: Syphilis Total Ab Reactive 03/17/22 08:40: Hepatitis C Antibody REACTIVE 03/17/22 08:40: Creatinine 0.41 L, Estim Creat Clear Calc 185.85, Est GFR (MDRD) Af Amer 247, Est GFR (MDRD) Non-Af 204, Uric Acid 3.5, AST 5 L, ALT 9 L 03/17/22 08:40: HIV 1&2 Antibody Non-Reactive 03/17/22 08:55: POC Glucose 146 H 03/17/22 10:04: POC Glucose 118 H
[2022-03-17 11:25] LABS: Bedside Glucose 104 mg/dL (74-106)
[2022-03-17] MEDS: LACTATED RINGERS 500 ML 999 ML IV (12:03)
[2022-03-17 12:30] LABS: Bedside Glucose 100 mg/dL (74-106)
[2022-03-17] MEDS: fentaNYL-bupivacaine (epidural) 100 ML BAG EPIDURAL ×2 (13:19→17:36)
--- NOTE | 2022-03-17 13:32 | PCM.PN.BLA ---
Progress Note At bedside to check on pt. Just received epidural. Assessment & Plan Assessment/Plan (1) Encounter for planned induction of labor: PLAN: Cvx unchanged and head not well applied. Unable to perform AROM at this time. Cont pit gtt. Insulin gtt not started as now BG are < 120. Continue diabetic protocol and close BP monitoring. Pre e labs with no evidence of pre eclampsia.
[2022-03-17] MEDS: Lactated Ringers 1,000 ML 200 ML IV (16:01)
[2022-03-17 16:25] LABS: Bedside Glucose 84 mg/dL (74-106)
[2022-03-17] MEDS: Acetaminophen 500 MG Tablet PO (18:52)
--- NOTE | 2022-03-17 19:09 | PCM.PN.BLA ---
Progress Note At bedside to check on pt. Comfortable with epidural. She offers no complaints at this time. Assessment & Plan Assessment/Plan (1) Encounter for planned induction of labor: PLAN: Cvx /-2 and AROM performed for copious clear fluid. After rupture, presenting part noted to be buttock. Bedside TAUS performed confirming complete breech presentation. Discussed r/b/a of a section with the patient and she desires to proceed. Consent obtained for section given breech presentation.
[2022-03-17] MEDS: Sodium Citrate/Citric Acid 30 ML UDC PO (19:37)
--- NOTE | 2022-03-17 21:22 | OP.PCM_ITS ---
Problems Associated Problem List Diagnoses (1) Syphilis affecting : (2) Type 2 diabetes mellitus: (3) Chronic hypertension: (4) History of pre-eclampsia: (5) Obesity: (6) Tobacco use affecting , antepartum: (7) History of drug use: (8) Marijuana use during : (9) 37 weeks gestation of : (10) History of syphilis: (11) History of chlamydia: (12) Limited care: (13) History of herpes genitalis: (14) History of bipolar disorder: (15) History of hemorrhage: Report of Operation Date of Procedure: 03/17/22 Pre-Operative Diagnosis: 37 week gestation, limited care, uncontrolled type 2 diabetes, cHTN, obesity, history of drug use, breech presentation, syphilis affecting Post-Operative Diagnosis: As above Surgery/Procedure Performed:: PLTCS via pfannenstiel incision Description of Surgical Findings:: VFI in kurt breech presentation. Normal appearing uterus and bilateral adnexa. Normal appearing placenta. Apgars 8, 9. Surgeon: Margaret Toscano nursing secretary: Augustine BRADLEY Type of Anesthesia: Epidural Special Medications: None Specimen's removed: Placenta Drains: Castanon Estimated Blood Loss (mL): 500 Fluids Replaced: 1500 Description of Procedure: The patient was taken back to the operating room where epidural anesthesia was found to be adequate. She was prepped and draped in the dorsal position with leftward tilt. A Pfannenstiel skin incision was made with a scalpel and this was carried down to the underlying layer of fascia. The fascia was incised in midline. The fascia was extended laterally using Castro scissors. The fascia was dissected off of the rectus muscles. The rectus muscles were in the midline. The peritoneum was entered bluntly with good visualization of the bladder. The peritoneal incision was extended bluntly. A bladder blade was inserted. A low transverse incision was made on the uterus with a scalpel. The buttocks of the was delivered through the hysterotomy, followed by the legs, body, arms, and head without any force or delay. The head was flexed during delivery. The cord was clamped and cut after a delay, and the vigorous was handed off to the awaiting nursery staff. Cord gases were sent. The placenta was removed with manual extraction. The placenta was sent to pathology. The uterus was exteriorized. The uterus was cleared of all clot debris. The uterine incision was closed in 2 layers. The first layer was a running locked layer using 1-0 Vicryl. The second was an imbricating layer that was performed using 1-0 Vicryl. The adnexa were normal-appearing. The uterus was placed back into the abdomen. The hysterotomy was hemostatic. The peritoneum was closed with 3-0 Vicryl in a running fashion. The fascia was closed with strata fix in a running fashion. Subcutaneous space was irrigated and made hemostatic with the Bovie cautery. 3-0 Vicryl was used to close the subcutaneous space. 4 Monocryl was used to reapproximate the skin in a subcuticular fashion. A silver dressing was placed. Instrument, sponge, needle counts were correct. The patient was taken to the recovery room in stable condition. Grafts/Implants Used: None Procedure Start Time: 20:01 Complications None Admit VTE Documentation VTE Present on Admission: No VTE Mechan Device Prophylaxis: SCD's
[2022-03-17] MEDS: Oxytocin 15 Units/NS 250ml 15 UNITS/250 ML IV.SOLN 83 UNITS IV (21:25)
[2022-03-17] MEDS: Insulin Lispro 100 UNIT/ML INSULN.PEN SC (22:34)
[2022-03-17] MEDS: Ketorolac 30 MG/ML Syringe IV (22:34)
[2022-03-17 23:13] LABS: Pathology Specimen OB SEE PATHOLOGY REPORT
[2022-03-18] VITALS (16 sets, daily range): BP systolic 99–121; BP diastolic 39–74; PULSE 72–103; RESP 16–18; TEMP 36.1–36.8; O2SAT 95–99
[2022-03-18 00:05] LABS: Bedside Glucose 153 mg/dL (74-106)
[2022-03-18 00:05] LABS: Bedside Glucose 173 mg/dL (74-106)
[2022-03-18] MEDS: Insulin Lispro 100 UNIT/ML INSULN.PEN SC (00:10)
[2022-03-18] MEDS: Lactated Ringers 1,000 ML 100 ML IV ×2 (00:26→10:00)
[2022-03-18] MEDS: Acetaminophen 500 MG Tablet 1000 MG PO ×4 (01:02→18:29)
[2022-03-18 01:26] LABS: Bedside Glucose 116 mg/dL (74-106)
[2022-03-18] MEDS: 0.9% Saline Lock 10 ML Syringe IV (05:10)
[2022-03-18 06:18] LABS: Hematocrit 25.1 % (37-47); Hemoglobin 7.7 g/dL (12.0-15.0); Mean Corp Hgb Conc 30.7 g/dL (32-36); Mean Corpuscular Hgb 24.5 pg (27.0-32.0); Mean Corpuscular Volume 79.9 fL (81-99); Mean Platelet Vol. 9.7 fl (6.2-12.0); Platelet Count 182 K/mm3 (150-450); RBC Distribution Width CV 15.3 % (11.6-14.6); RBC Distribution Width SD 44.6 fl (35.1-43.9); Red Blood Count 3.14 M/mm3 (4.2-5.4); White Blood Count 7.6 K/mm3 (4.4-11.0)
[2022-03-18 06:35] LABS: Bedside Glucose 90 mg/dL (74-106)
--- NOTE | 2022-03-18 09:20 | PCM.PN.OB ---
Subjective Subjective Patient seen at bedside. Sitting up eating breakfast tray. Denies any pain. Has gotten out of bed x1 only. Still has urban catheter due to low urine output. She denies any headache, dizziness, SOB or CP. Objective Data Objective Data Vital Signs: Vital Signs Temp Pulse Resp BP Pulse Ox O2 Del Method 97 F L 82 16 107/39 L 98 Room Air 03/18/22 08:25 03/18/22 08:26 03/18/22 08:26 03/18/22 08:25 03/18/22 08:26 03/18/22 08:26 Oxygen Delivery Method Room Air Weight: 242 lb 15.19 oz Body Mass Index (BMI) 41.7 Intake & Output: Intake and Output for Last 24 Hours 03/16/22 03/17/22 03/18/22 23:59 23:59 23:59 Intake Total 2731.91 / 2731.91 250 / 250 Output Total 300 / 300 250 / 250 Balance 2431.91 / 2431.91 0 / 0 Lab / Micro Data Attestation: I reviewed the patient's lab results. Result Diagrams: 03/18/22 06:05 03/17/22 08:40 Labs: Laboratory Results - last 24 hr 03/17/22 07:56: POC Glucose 191 H 03/17/22 08:05: Chlam trachomat DNA PCR Negative, N.gonorrhoeae DNA (PCR) Negative, Group B Strep DNA Negative, Specimen Comment Not Reportable 03/17/22 08:40: Blood Type B POSITIVE, Antibody Screen NEGATIVE 03/17/22 08:40: Syphilis Total Ab Reactive 03/17/22 08:40: Hepatitis C Antibody REACTIVE 03/17/22 08:40: HIV 1&2 Antibody Non-Reactive 03/17/22 08:55: POC Glucose 146 H 03/17/22 10:04: POC Glucose 118 H 03/17/22 11:02: POC Glucose 104 03/17/22 11:59: POC Glucose 100 03/17/22 16:03: POC Glucose 84 03/17/22 21:38: POC Glucose 173 H 03/17/22 23:38: POC Glucose 153 H 03/18/22 01:04: POC Glucose 116 H 03/18/22 06:05: WBC 7.6, RBC 3.14 L, Hgb 7.7 L, Hct 25.1 L, MCV 79.9 L, MCH 24.5 L, MCHC 30.7 L, RDW Std Deviation 44.6 H, RDW Coeff of Ofelia 15.3 H, Plt Count 182, MPV 9.7 03/18/22 06:06: POC Glucose 90 ROS Eyes Eyes: Denies blurry vision, change in vision or spots in vision ENT HEENT: Denies dizziness or headache(s) Cardiovascular Cardiovascular: Denies abdominal pain, chest pain or dyspnea Respiratory/Chest Respiratory/Chest: Denies cough, dyspnea, shortness of breath at rest or shortness of breath with exertion Gastrointestinal Gastrointestinal: Denies abdominal pain, diarrhea or vomiting Genitourinary Genitourinary: Denies change in urinary stream, difficulty urinating or dysuria Musculoskeletal Musculoskeletal: Reports none Integumentary Integumentary: Denies rash Neurologic Neurologic: Denies dizziness, headache(s), memory loss or weakness Physical Exam Narrative Dressing is dry and intact Const alert and no apparent distress General Appearance: cooperative and comfortable Exam Limitations: no limitations HEENT normocephalic Eyes General Eye: normal appearance of both eyes Neck full ROM General: normal visual inspection Chest Chest: symmetrical chest wall rise Resp normal respiratory effort and normal air movement Effort and Inspection: symmetric chest movement Auscultation: clear to auscultation bilaterally Cardio regular rate and regular rhythm GI normal to inspection, nondistended, normoactive bowel sounds Back/Spine normal ROM Extremity full ROM and no calf tenderness General Extremity: normal exam except as noted Skin no rashes or lesions noted Neuro CN's II-XII intact bilaterally Psych mental status grossly normal Assessment & Plan (1) Delivery by section: (2) Syphilis affecting : (3) Type 2 diabetes mellitus: (4) Chronic hypertension: (5) Obesity: (6) Tobacco use affecting , antepartum: (7) History of drug use: (8) Marijuana use during : (9) Limited care: (10) History of herpes genitalis: (11) History of bipolar disorder: (12) History of hemorrhage: PLAN: Plan PO Day 1 Primary C/S for breech Consult to hospitalist placed for Type 2 DM management- currently on sliding scale and 2 elevated levels last night Pain control Hgb- 7.7- Venofer 200 mg IV now- patient asymptomatic Start oral iron supplementation BID Urine output - under 120 cc/4 hours- Give 500 cc fluid bolus x 1 Keep urinary catheter in place until appropriate output Bottle feeding Pain control Increase ambulation today
[2022-03-18 09:30] LABS: Hemoglobin A1c 5.9 % (3.8-5.6)
[2022-03-18] MEDS: LACTATED RINGERS 500 ML 999 ML IV ×2 (10:00→10:05)
--- NOTE | 2022-03-18 10:31 | PCM.PN.HOSP ---
Subjective Subjective Consult for medical management: 21-year-old female history of type II DM (diagnosed at age 15yrs), on metformin, hypertension (not on medications), history of syphilis in , who had a section yesterday for a term baby, breech presentation. Hospital medicine was consulted for medical management for blood sugars. Review of patient blood glucose checks have shown blood glucose ranging from 84 to 191. Patient was seen and examined. She feels improved, denies any dizziness or palpitation. Baby is doing well. Objective Data Objective Data Vital Signs: Vital Signs Temp Pulse Resp BP Pulse Ox O2 Del Method 97 F L 82 16 107/39 L 98 Room Air 03/18/22 08:25 03/18/22 08:26 03/18/22 08:26 03/18/22 08:25 03/18/22 08:26 03/18/22 08:26 Oxygen Delivery Method Room Air Weight: 110.2 kg Body Mass Index (BMI) 41.7 Intake & Output: Intake and Output for Last 24 Hours 03/16/22 03/17/22 03/18/22 23:59 23:59 23:59 Intake Total 2731.91 / 2731.91 250 / 250 Output Total 300 / 300 250 / 250 Balance 2431.91 / 2431.91 0 / 0 Lab / Micro Data Result Diagrams: 03/18/22 06:05 03/17/22 08:40 Labs: Laboratory Results - last 24 hr 03/17/22 08:05: Chlam trachomat DNA PCR Negative, N.gonorrhoeae DNA (PCR) Negative, Group B Strep DNA Negative, Specimen Comment Not Reportable 03/17/22 10:04: POC Glucose 118 H 03/17/22 11:02: POC Glucose 104 03/17/22 11:59: POC Glucose 100 03/17/22 16:03: POC Glucose 84 03/17/22 21:38: POC Glucose 173 H 03/17/22 23:38: POC Glucose 153 H 03/18/22 01:04: POC Glucose 116 H 03/18/22 06:05: WBC 7.6, RBC 3.14 L, Hgb 7.7 L, Hct 25.1 L, MCV 79.9 L, MCH 24.5 L, MCHC 30.7 L, RDW Std Deviation 44.6 H, RDW Coeff of Ofelia 15.3 H, Plt Count 182, MPV 9.7 03/18/22 06:06: POC Glucose 90 03/18/22 09:05: Hemoglobin A1c 5.9 H Physical Exam Narrative Physical exam: General: Alert, Oriented x3, Cooperative, morbidly obese HEENT: Atraumatic Oral: Moist Mucosa Neck: Supple Lungs: Clear to auscultation Cardiovascular: HS I+II, regular, no murmurs Abdomen: Bowel Sounds Present, Soft, Non Tender Extremities: No bilateral leg edema Skin: No rashes, No breakdown Neurological: Grossly intact Psych/Mental Status: Appropriate Const well nourished Assessment & Plan Assessment/Plan (1) Type 2 diabetes mellitus: PLAN: Plan 1. 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 Acute blood loss anemia from surgery, hemoglobin is 7.7 from 10.4, Status post IV Venofer, continue oral iron 3. Chronic hypertension, controlled, not on any medication, continue to monitor 4. Syphilis in , history of hepatitis C, chlamydia. HIV test was nonreactive in this admission 5. Morbid obesity, BMI 41.7, lifestyle modification recommended 6. Nicotine dependence, advised to quit 7. Postop day #1 status post CS, breech presentation, patient 2 para 1 Follow-up on OB recommendation 8. DVT prophylaxis?early ambulation commended Charges/Coding Visit Charges Inpatient E&M: 07546 Subs Hosp L3
[2022-03-18] MEDS: Ketorolac 30 MG/ML Syringe IV (13:09)
[2022-03-18] MEDS: Senna/Docusate Sodium 1 Tablet PO (13:10)
[2022-03-18] MEDS: Ferrous Sulfate 325 MG Tablet PO ×2 (13:11→18:28)
[2022-03-18] MEDS: Enoxaparin 40 MG/0.4 ML Syringe SC (13:11)
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
[2022-03-18 14:56] LABS: Bedside Glucose 91 mg/dL (74-106)
[2022-03-18] MEDS: Ibuprofen 600 MG Tablet PO (18:28)
[2022-03-18 22:30] LABS: Bedside Glucose 120 mg/dL (74-106)
[2022-03-19] MEDS: Acetaminophen 500 MG Tablet 1000 MG PO ×4 (01:06→18:21)
[2022-03-19] MEDS: Ibuprofen 600 MG Tablet PO ×4 (01:06→18:21)
[2022-03-19 02:10] VITALS: BP 128/70; PULSE 78; RESP 16; TEMP 36.7; O2SAT 98
[2022-03-19 06:22] LABS: Hematocrit 24.7 % (37-47); Hemoglobin 7.6 g/dL (12.0-15.0); Mean Corp Hgb Conc 30.8 g/dL (32-36); Mean Corpuscular Hgb 24.6 pg (27.0-32.0); Mean Corpuscular Volume 79.9 fL (81-99); Mean Platelet Vol. 9.6 fl (6.2-12.0); Platelet Count 192 K/mm3 (150-450); RBC Distribution Width CV 15.7 % (11.6-14.6); RBC Distribution Width SD 45.1 fl (35.1-43.9); Red Blood Count 3.09 M/mm3 (4.2-5.4); White Blood Count 5.3 K/mm3 (4.4-11.0)
[2022-03-19 08:00] VITALS: BP 116/90; PULSE 90; RESP 16; TEMP 36.3
--- NOTE | 2022-03-19 08:45 | PCM.PN.OB ---
Subjective Subjective Patient seen at bedside. Ambulating and voiding without difficulty. Denies headache, dizziness, SOB, or CP. Going off unit to smoke. Bottle feeding. Desires discharge tomorrow. Objective Data Objective Data Vital Signs: Vital Signs Temp Pulse Resp BP Pulse Ox O2 Del Method 97.5 F L 91 16 140/83 H 98 Room Air 03/20/22 13:54 03/20/22 13:54 03/20/22 13:54 03/20/22 13:54 03/19/22 02:10 03/20/22 01:12 Oxygen Delivery Method Room Air Weight: 242 lb 15.19 oz Body Mass Index (BMI) 41.7 Intake & Output: Intake and Output for Last 24 Hours 03/18/22 03/19/22 03/20/22 23:59 23:59 23:59 Intake Total 2666.67 / 2666.67 Output Total 1600 / 1600 Balance 1066.67 / 1066.67 Lab / Micro Data Result Diagrams: 03/19/22 06:10 03/17/22 08:40 Labs: Laboratory Results - last 24 hr 03/19/22 15:47: POC Glucose 108 H 03/19/22 21:32: POC Glucose 117 H 03/20/22 07:42: POC Glucose 108 H 03/20/22 11:58: POC Glucose 133 H Micro: Microbiology 03/17/22 Unknown Genital vaginal Group B Streptococcus Culture - Preliminary Streptococcus group B ROS Eyes Eyes: Denies blurry vision, change in vision or spots in vision ENT HEENT: Denies dizziness or headache(s) Cardiovascular Cardiovascular: Denies abdominal pain, chest pain or dyspnea Respiratory/Chest Respiratory/Chest: Denies cough, dyspnea, shortness of breath at rest or shortness of breath with exertion Gastrointestinal Gastrointestinal: Denies abdominal pain, diarrhea or vomiting Genitourinary Genitourinary: Denies change in urinary stream, difficulty urinating or dysuria Musculoskeletal Musculoskeletal: Reports none Integumentary Integumentary: Denies rash Neurologic Neurologic: Denies dizziness, headache(s), memory loss or weakness Physical Exam Narrative Dressing is dry and intact Const alert and no apparent distress General Appearance: cooperative and comfortable Exam Limitations: no limitations HEENT normocephalic Eyes General Eye: normal appearance of both eyes Neck full ROM General: normal visual inspection Chest Chest: symmetrical chest wall rise Resp normal respiratory effort and normal air movement Effort and Inspection: symmetric chest movement Auscultation: clear to auscultation bilaterally Cardio regular rate and regular rhythm GI normal to inspection, nondistended, normoactive bowel sounds Back/Spine normal ROM Extremity full ROM and no calf tenderness General Extremity: normal exam except as noted Skin no rashes or lesions noted Neuro CN's II-XII intact bilaterally Psych mental status grossly normal Assessment & Plan (1) Delivery by section: (2) Syphilis affecting : (3) Type 2 diabetes mellitus: (4) Obesity: (5) Tobacco use affecting , antepartum: (6) History of hemorrhage: (7) Anemia due to blood loss: PLAN: Plan POD 2 Primary C/S Voiding - appropriate output/hour Hgb. slightly decreased- asymptomatic Discussed receiving additional IV FE- patient declines- refusing placement of IV Taking oral iron Lochia decreasing Blood sugars within normal ranges- no ss initiated Social service consulted Anticipate discharge home tomorrow
[2022-03-19 09:11] LABS: Bedside Glucose 97 mg/dL (74-106)
[2022-03-19] MEDS: Senna/Docusate Sodium 1 Tablet PO (10:13)
[2022-03-19] MEDS: Enoxaparin 40 MG/0.4 ML Syringe SC (10:13)
--- NOTE | 2022-03-19 10:51 | CASEMGMT ---
SW Note SW met with patient per the request of ELADIO Peraza to provide patient with a list of local PCPs. SW introduced herself and role as [facility] Application Development Intern and provided patient with a list of and [facility] Health Care providers. Patient was receptive towards provided information and reported no other needs. Tana MUKHERJEE, YESIKA
[2022-03-19] MEDS: Ferrous Sulfate 325 MG Tablet PO ×2 (12:01→18:22)
--- NOTE | 2022-03-19 12:24 | PCM.PN.HOSP ---
Subjective Subjective Patient is a 22-year-old lady who underwent section on 03/17/2022 on account of breech presentation. The hospitalist service was consulted to assist with management of patient's diabetes Objective Data Objective Data Vital Signs: Vital Signs Temp Pulse Resp BP Pulse Ox O2 Del Method 97.4 F L 90 16 116/90 H 98 Room Air 03/19/22 08:00 03/19/22 08:00 03/19/22 08:00 03/19/22 08:00 03/19/22 02:10 03/19/22 02:10 Oxygen Delivery Method Room Air Weight: 110.2 kg Body Mass Index (BMI) 41.7 Intake & Output: Intake and Output for Last 24 Hours 03/17/22 03/18/22 03/19/22 23:59 23:59 23:59 Intake Total 2731.91 / 2731.91 2666.67 / 2666.67 Output Total 300 / 300 1600 / 1600 Balance 2431.91 / 2431.91 1066.67 / 1066.67 Lab / Micro Data Result Diagrams: 03/19/22 06:10 03/17/22 08:40 Labs: Laboratory Results - last 24 hr 03/17/22 08:40: Miscellaneous Test 03/18/22 14:34: POC Glucose 91 03/18/22 22:04: POC Glucose 120 H 03/19/22 06:10: WBC 5.3, RBC 3.09 L, Hgb 7.6 L, Hct 24.7 L, MCV 79.9 L, MCH 24.6 L, MCHC 30.8 L, RDW Std Deviation 45.1 H, RDW Coeff of Ofelia 15.7 H, Plt Count 192, MPV 9.6 03/19/22 08:12: POC Glucose 97 Micro: Microbiology 03/17/22 Unknown Genital vaginal Group B Streptococcus Culture - Preliminary Beta streptococcus Physical Exam Narrative GENERAL: cooperative HEENT: Atraumatic; normocephalic EYES; Anicteric, Normal Conjunctiva NECK; supple, normal thyroid, RESPIRATORY: Diminished to auscultation CARDIOVASCULAR: Regular S1 S2, GI: soft, normoactive bowel sounds, : No Renal angle tenderness; EXTREMITIES: No edema, no clubbing, MUSCULOSKELETAL: no muscle wasting NEURO: Awake; no lateralizing signs. SKIN: No Rash PSYCH; Flat affect Assessment & Plan Assessment/Plan (1) Type 2 diabetes mellitus: PLAN: Plan Patient is a 22-year-old lady who underwent section on 03/17/2022 on account of breech presentation. The hospitalist service was consulted to assist with management of patient's diabetes 1. Status post section on account of breech presentation ? Postop management deferred to NEEDLE LOOM OPERATOR 2. Diabetes mellitus type 2 Patient blood glucose levels controlled on Accu-Cheks before meals and at bedtime with sliding scale coverage 3. History of hep C ? Patient to follow-up with primary care physician for subsequent care 4. Syphilis in ? Management deferred to OB 5. Class III obesity with BMI of 41.7 ? Weight loss advised 6. Anemia ? Secondary to anemia of chronic disorder ? Patient is on Venofer as well as oral iron monitoring H&H with plans to transfuse if hemoglobin falls below 7 or patient is deemed to be symptomatic 7. Tobacco dependence - Counseled on cessation, offered nicotine patch for tobacco cravings 8. DVT prophylaxis ? SC enoxaparin Charges/Coding Visit Charges Inpatient E&M: 99255 Subs Hosp L2
[2022-03-19 12:35] LABS: Bedside Glucose 92 mg/dL (74-106)
[2022-03-19 13:02] VITALS: BP 116/80; PULSE 104; RESP 16; TEMP 36.1
--- NOTE | 2022-03-19 15:59 | NURSING ---
Mom observed to be bonding and providing adequate baby care. Has gone out to smoke several times this shift and left baby at the nurses' station. No support people here today.
[2022-03-19 16:11] LABS: Bedside Glucose 108 mg/dL (74-106)
[2022-03-19 19:23] VITALS: BP 146/73; PULSE 88; RESP 18; TEMP 36.6
[2022-03-19] MEDS: oxyCODONE 5 MG Tablet PO (20:27)
[2022-03-19 20:29] VITALS: BP 129/75
[2022-03-19 21:55] LABS: Bedside Glucose 117 mg/dL (74-106)
[2022-03-20 01:12] VITALS: BP 123/68; PULSE 88; RESP 16; TEMP 36.4
[2022-03-20] MEDS: Acetaminophen 500 MG Tablet 1000 MG PO ×3 (01:13→13:47)
[2022-03-20] MEDS: Ibuprofen 600 MG Tablet PO ×3 (01:13→13:48)
[2022-03-20] MEDS: Ferrous Sulfate 325 MG Tablet PO (07:38)
[2022-03-20 07:50] VITALS: BP 133/84; PULSE 87; RESP 20; TEMP 36.1
[2022-03-20 08:30] LABS: Bedside Glucose 108 mg/dL (74-106)
[2022-03-20] MEDS: oxyCODONE 5 MG Tablet PO (08:37)
[2022-03-20] MEDS: Senna/Docusate Sodium 1 Tablet PO (10:41)
[2022-03-20] MEDS: Enoxaparin 40 MG/0.4 ML Syringe SC (10:42)
[2022-03-20 12:20] LABS: Bedside Glucose 133 mg/dL (74-106)
[2022-03-20 13:54] VITALS: BP 140/83; PULSE 91; RESP 16; TEMP 36.4
--- NOTE | 2022-03-20 14:51 | PCM.DC.SUM ---
Providers Date of Admission: 03/17/22 Primary Care Physician: Birgit Primary Care Phys Consultations 03/18/22 08:58 Consult: Hospitalist Routine Consulting Provider: Char Lockhart Reason for Consult: uncontrolled type 2 diabetes EMERGENT Consult: No MD Notified: Yes Date Notified: 03/18/22 Time Notified: 08:58 Method of Notification: Verbal 03/18/22 09:02 Consult: Infectious Disease Routine Consulting Provider: Cassius Aguirre Reason for Consult: infectious disease EMERGENT Consult: Yes Notified: Yes Date Notified: 03/17/22 Time Notified: 09:02 Method of Notification: Verbal Method of Consult:: In-Person Reason For Visit: C SECTION DELIVERY Diagnosis Discharge Diagnosis (1) Delivery by section: Status: Acute (2) Syphilis affecting : Status: Acute Code(s): O98.119 - Syphilis complicating , unspecified trimester (3) Type 2 diabetes mellitus: Status: Acute Code(s): E11.9 - Type 2 diabetes mellitus without complications (4) Obesity: Status: Acute Code(s): E66.9 - Obesity, unspecified (5) Tobacco use affecting , antepartum: Status: Acute Code(s): O99.330 - Smoking (tobacco) complicating , unspecified trimester (6) History of hemorrhage: Status: Acute Code(s): Z87.59 - Personal history of other complications of , childbirth and the puerperium (7) Anemia due to blood loss: Status: Acute Code(s): D50.0 - Iron deficiency anemia secondary to blood loss (chronic) Plan POD 3 Primary C/S Pain control D/C via hospitalist with follow up instructions Bottle feeding D/C home with follow up in office next week for incision check Medications at Discharge Home Medications vit no.95-ferrous fumarate 28 mg-folic acid 800 mcg tablet () 1 tab PO DAILY 09/28/21 acetaminophen 500 mg tablet 1,000 mg PO Q6H #0 tabs 03/20/22 ferrous sulfate 325 mg (65 mg iron) tablet (FeroSul) 325 mg PO 1200,1700 #0 tabs 03/20/22 ibuprofen 600 mg tablet 600 mg PO Q6H #0 tabs 03/20/22 sennosides 8.6 mg-docusate sodium 50 mg tablet (Stool Softener-Stimulant Laxative) 1 - 2 tab PO DAILY #0 tabs 03/20/22 Hospital Course Operations section Summary of Care Provided Hospital Course: Patient had primary section. Hospital course was uneventful. Physical Exam Narrative Patient seen at bedside. Requesting to be discharged home. Baby discharged home today. Pain controlled with PO Tylenol and Motrin. Ambulating and voiding. Passing flatus and had BM today. Denies headache, dizziness, SOB, or CP. Const alert and no apparent distress General Appearance: cooperative and comfortable Exam Limitations: no limitations HEENT normocephalic Eyes General Eye: normal appearance of both eyes Neck full ROM General: normal visual inspection Chest Chest: symmetrical chest wall rise Resp normal respiratory effort and normal air movement Effort and Inspection: symmetric chest movement Auscultation: clear to auscultation bilaterally Cardio regular rate and regular rhythm GI normal to inspection, nondistended, normoactive bowel sounds Back/Spine normal ROM Extremity full ROM and no calf tenderness General Extremity: normal exam except as noted Skin no rashes or lesions noted Neuro CN's II-XII intact bilaterally Psych mental status grossly normal Weight / BMI Weight Weight: 242 lb 15.19 oz Body Mass Index (BMI) 41.7 ABG / Lab / Microbiology Data Result Diagrams: 03/19/22 06:10 03/17/22 08:40 Laboratory: Laboratory Results - last 24 hr 03/19/22 15:47: POC Glucose 108 H 03/19/22 21:32: POC Glucose 117 H 03/20/22 07:42: POC Glucose 108 H 03/20/22 11:58: POC Glucose 133 H Microbiology: Microbiology 03/17/22 Unknown Genital vaginal Group B Streptococcus Culture - Preliminary Streptococcus group B D/C Instructions Discharge Diet: No restrictions Discharge Activity: May Not Drive (2 weeks) May resume sexual activity in: 6-8 weeks Weight Bearing Status: Weight bearing as tolerated Call your doctor if your incision/area has: Continuous Slow Oozing, Sudden Increased Bleeding, Increased Pain/ Swelling, Increased Redness, Foul Smelling Discharge and Swelling at the incision site Call your doctor if you observe: Fever of 101 or Higher, Numbness or Tingling, Using more than 1 pad per hour, Shortness of breath, Dizziness, Swelling in the ankles, Chest pain and Calf discomfort Change Dressing in: leave in place till F/U Please Follow Up With: Margaret Toscano, When: 1 week for incision check Meaningful Use Info Meaningful Use Diagnoses (Choose all that apply): None applicable Discharge Plan Admission Admit Date/Time: 03/17/22 07:08 Primary Reason for Your Visit: Labor and Delivery Attending Provider: Margaret Toscano Primary Care Provider: Care Physician,No Primary Consulting Providers: Cassius Aguirre ; Char Lockhart ; Inderjit Ballard Discharge Orders/Prescriptions Prescriptions: New sennosides-docusate sodium [Stool Softener-Stimulant Laxat] 8.6-50 mg Tablet 1 - 2 tab PO DAILY Qty: 0 0RF acetaminophen 500 mg Tablet 1,000 mg PO Q6H Qty: 0 0RF ferrous sulfate [FeroSul] 325 mg (65 mg iron) Tablet 325 mg PO 1200,1700 Qty: 0 0RF ibuprofen 600 mg Tablet 600 mg PO Q6H Qty: 0 0RF Continued PNV cmb#95-ferrous fumarate-FA [] 28 mg iron- 800 mcg tablet 1 tab PO DAILY Discontinued aspirin 81 mg Capsule 81 mg PO DAILY Referrals / Follow Up: Care Physician,No Primary [Primary Care Provider] -
== END 2022-03-20 15:00 | disposition home or self-care (01) | DRG 540 ==
PROVIDERS: Advanced Practice Midwife; Internal Medicine Infectious Disease; Admitting Provider Obstetrics & Gynecology; Referring Provider Obstetrics & Gynecology; Visit Provider Obstetrics & Gynecology
DX: O32.1XX0 Maternal care for breech presentation, not applicable or unspecified (principal); O24.12 Pre-existing type 2 diabetes mellitus, in childbirth; O10.92 Unspecified pre-existing hypertension complicating childbirth; O98.12 Syphilis complicating childbirth; O99.324 Drug use complicating childbirth; D50.0 Iron deficiency anemia secondary to blood loss (chronic); F17.200 Nicotine dependence, unspecified, uncomplicated; A53.9 Syphilis, unspecified; E66.01 Morbid (severe) obesity due to excess calories; F12.99 Cannabis use, unspecified with unspecified cannabis-induced disorder; O99.334 Smoking (tobacco) complicating childbirth; Z3A.37 37 weeks gestation of pregnancy; Z37.0 Single live birth; Z79.82 Long term (current) use of aspirin; O99.214 Obesity complicating childbirth; O90.81 Anemia of the puerperium; O99.824 Streptococcus B carrier state complicating childbirth; Z59.82 Transportation insecurity; Z59.89 Other problems related to housing and economic circumstances; Z91.199 Patient's noncompliance with other medical treatment and regimen due to unspecified reason; Z79.84 Long term (current) use of oral hypoglycemic drugs; Z87.59 Personal history of other complications of pregnancy, childbirth and the puerperium; Z87.42 Personal history of other diseases of the female genital tract; Z86.19 Personal history of other infectious and parasitic diseases; Z86.59 Personal history of other mental and behavioral disorders
CPT/HCPCS: 59025; 59050; 76815; 80307; 82565; 82570; 82962; 83036; 84156; 84450; 84460; 84550; 85025; 85027; 86703; 86780; 86803; 86850; 86900; 86901; 87077; 87081; 87186; 87491; 87591; 87653; 88307; 99218; 99251; J1756; J7120; A4216; G0378; G0463; J2405

== ENCOUNTER 2022-08-13 13:03 | Emergency (ER) | payer MEDICAID, SELFPAY ==
[2022-08-13 13:04] VITALS: BP 142/101; PULSE 105; RESP 16; TEMP 36.9; O2SAT 100; BMI 32.8
--- NOTE | 2022-08-13 13:21 | EDS_ITS ---
HPI <JANA Garza - Last Filed: 08/13/22 13:54> HPI - Female History of Present Illness Chief Complaint: Narrative Narrative: 22-year-old female with history of , methamphetamine abuse, type 2 diabetes, hypertension presents the emergency department for possible . Patient states that she is having unprotected sex, she is unsure if she is , took a home test at home today and was unable to read it. Patient states that she is very anxious, she currently has 2 children last was February 2022, she currently does not have custody of her 2 children at this time secondary to drugs. She denies any abdominal pain, abdominal bleeding. PFSH <JANA Garza - Last Filed: 08/13/22 13:54> PFSH Medical History (Updated 08/13/22 @ 13:54 by JANA Garza) 37 weeks gestation of Anemia due to blood loss Anxiety Chlamydia infection affecting Chronic hypertension Depression Diabetes Encounter for planned induction of labor Genital herpes affecting Gonorrhea affecting Hepatitis History of bipolar disorder History of chlamydia History of drug use History of herpes genitalis History of hemorrhage History of pre-eclampsia History of syphilis Hypertension Limited care Marijuana use during Obesity hemorrhage Psychiatric disorder Syphilis affecting Tobacco use affecting , antepartum Type 2 diabetes mellitus Home Medications NK 08/13/22 [History Last Taken Unknown] Allergy/AdvReac Type Severity Reaction Status Date / Time No Known Allergies Allergy Verified 08/13/22 13:07 Surgical History (Updated 03/28/22 @ 00:02 by Artis Alvarado) Delivery by section History of surgery Social History Smoking Status: Heavy Smoker (>10/day) substance use type: marijuana, heroin and methamphetamine ROS <JANA Garza - Last Filed: 08/13/22 13:54> ROS ED ROS Narrative Constitutional: Negative for fever, chills, weight loss, weakness Eyes: Negative for vision loss, vision change, double vision ENT: Negative for any sore throat, ear pain, congestion Cardiovascular: Negative for any chest pain, tightness, palpitations Respiratory: Negative for any cough, sputum production, hemoptysis, dyspnea, dyspnea on exertion, orthopnea Gastrointestinal: Negative for any abdominal pain, nausea, vomiting, diarrhea, constipation, blood in stool, blood in vomit : Negative for any urinary frequency, dysuria, retention, blood in urine. Concern for Muscle skeletal: Negative for any muscle joint pain, stiffness, myalgias, arthralgias, neck pain, back pain Neurological: Negative for any headache, syncope, numbness or tingling, dizziness Skin: Negative for any rashes, lumps, itching, abrasions, lacerations Psychiatric: Negative for any depression, anxiety, stress, suicidal ideation, homicidal ideation Hematologic: Negative for any easy bruising, excessive bruising, easy bleeding Allergies: Negative for any eczema, hives, rash EXAM <JANA Garza - Last Filed: 08/13/22 13:54> Physical Exam Narrative Exam Narrative: Vital signs reviewed. HEET: Head normocephalic atraumatic, TMs clear bilaterally. Posterior pharynx is clear, moist mucous membranes. Nares clear bilaterally. Neck: Supple with no lymphadenopathy or tenderness. No signs of meningismus, negative jolt sign. Cardiac: Regular rate and rhythm no murmurs gallops or rubs, equal peripheral pulses bilaterally. Respiratory: Lungs clear to auscultation bilaterally. No chest tenderness. Abdomen: Soft, nontender, nondistended. No abdominal bruit or pulsatile masses. No hepatosplenomegaly Extremities: No peripheral edema, no signs of gross trauma or deformity. Active full range of motion of all extremities. Neuro: Cranial nerves II through XII intact, no focal neurological deficits. Skin: Clean dry and intact with no rash, purpura, petechiae, vesicles or pustules. Backs/flank: No CVA tenderness, no midline spinal tenderness, no deformity. Psych: Normal mood and affect. No SI, HI or acute psychosis. Const Vital Signs: 08/13/22 13:04 Temperature 98.4 F Temperature Source Temporal Pulse Rate 105 H Respiratory Rate 16 Blood Pressure 142/101 H Blood Pressure Mean 114 Pulse Ox 100 Oxygen Delivery Method Room Air Positive well nourished and well developed General Appearance ED: well developed <Dr. Paul Lowe DO - Last Filed: 08/13/22 14:02> Physical Exam Const Vital Signs: 08/13/22 13:04 Temperature 98.4 F Temperature Source Temporal Pulse Rate 105 H Respiratory Rate 16 Blood Pressure 142/101 H Blood Pressure Mean 114 Pulse Ox 100 Oxygen Delivery Method Room Air [facility] <JANA Garza - Last Filed: 08/13/22 13:54> [facility] Lab Data Labs: Laboratory Results - last 24 hr 08/13/22 13:21 Urine Color Yellow Urine Clarity Clear Urine pH 6.0 Ur Specific [place] 1.025 Urine Protein 15 H Urine Glucose (UA) Normal Urine Ketones Negative Urine Occult Blood Negative Urine Nitrite Negative Urine Bilirubin Negative Urine Urobilinogen 1 H Ur Leukocyte Esterase 25 H Urine RBC 0 SEEN Urine WBC 0 SEEN Ur Squamous Epith Cells 0-5 SEEN Urine Bacteria 0 SEEN Urine Mucus 0 SEEN Urine Test Negative Treatment and Re-Evaluation Narrative: Patient appears well, patient appears nontoxic, vital signs are stable. Patient presents to the emergency department for confirmation of a urine test. Patient has no vaginal bleeding, vaginal pain, pelvic pain, nausea or vomiting. Patient states that she is going through a hard time right now just needs to see if she is or not. Unsure of her last menstrual cycle. Patient's urinalysis was negative for any infection, she had a urinalysis that was negative for here. She will follow-up outpatient 1 week. Secondary to the patient's lifestyle, we did speak at length about changing her lifestyle, she does have plans to get her children back. Patient was instructed about using abstinence as well as safe sex practices. She has no further questions. <Dr. Paul Lowe DO - Last Filed: 08/13/22 14:02> [facility] Narrative Medical decision making narrative: Attending note: Patient seen and evaluated with commercial intern. I perform my own [id number] evaluation. I agree with the plan of work-up. Presents for evaluation concerns for indeterminate home . Last child for this past February. No abdominal pain no urinary symptoms. Differential , no pain for concerns for ectopic that there is . No urine symptoms for concerns for UTI. Exam alert nontoxic patient. hCG obtained negative. She is reassured. Discussed with patient can recheck a urine in 1 week for definitive evaluation. Outpatient follow-up. Lab Data Labs: Laboratory Results - last 24 hr 08/13/22 13:21 Urine Color Yellow Urine Clarity Clear Urine pH 6.0 Ur Specific [place] 1.025 Urine Protein 15 H Urine Glucose (UA) Normal Urine Ketones Negative Urine Occult Blood Negative Urine Nitrite Negative Urine Bilirubin Negative Urine Urobilinogen 1 H Ur Leukocyte Esterase 25 H Urine RBC 0 SEEN Urine WBC 0 SEEN Ur Squamous Epith Cells 0-5 SEEN Urine Bacteria 0 SEEN Urine Mucus 0 SEEN Urine Test Negative Discharge Plan Triage Chief Complaint: ED Midlevel Provider: Jadon De La Garza ED Provider: Paul Lowe Dx/Rx/DC Orders Clinical Impression: Concern about unplanned without diagnosis Prescriptions: No Action NK Primary Care Provider: Care Physician,No Primary Referrals: Care Physician,No Primary [Primary Care Provider] - Activity Restrictions/Additional Instructions: Please use safe sex practices Disposition Disposition: Home, Self Care
[2022-08-13 13:26] LABS: Bacteria 0 SEEN /hpf (None Seen); Mucous, Urine 0 SEEN /hpf (<or=2+); Red Blood Cells-Urine 0 SEEN /hpf (0-5); White Blood Cells 0 SEEN /hpf (0-5)
[2022-08-13 13:31] LABS: Color, Urine Yellow (Yellow); Glucose, Dipstick Normal (Normal); Ketone-Dipstick Negative (Negative); Leukocyte Esterase-Dipstick 25 /ul (Negative); Nitrite-Dipstick Negative (Negative); Occult Blood-Urine Negative /ul (Negative); Protein-Dipstick 15 mg/dl (Negative); Specific Gravity, Urine 1.025 (1.002-1.030); Urine Bilirubin Dipstick Negative (Negative); Urine Clarity Clear (Clear); Urine Urobilinogen 1 mg/dl (Normal)
[2022-08-13 13:47] LABS: Internal QC Validated? YES +Cl - CLEAR BKGD; Pregnancy, Urine Negative Negative; Squamous Epithelial Cells - UA 0-5 SEEN /hpf (5-10)
[2022-08-13 14:20] VITALS: RESP 16
== END 2022-08-13 14:20 | disposition home or self-care (01) ==
PROVIDERS: Nurse Practitioner; Emergency Provider Emergency Medicine; Visit Provider Emergency Medicine
DX: Z32.00 Encounter for pregnancy test, result unknown (principal); E11.9 Type 2 diabetes mellitus without complications; I10 Essential (primary) hypertension; F17.200 Nicotine dependence, unspecified, uncomplicated
CPT/HCPCS: 81001; 81025; 99282

== ENCOUNTER 2022-10-05 14:23 | Observation (INO) | payer MEDICAID, SELFPAY ==
[2022-10-05 14:23] VITALS: BP 131/88; PULSE 99; RESP 18; TEMP 36.2; O2SAT 99; BMI 31.9
[2022-10-05 14:56] LABS: Absolute Lymphocyte Count 2.05 X10^3/uL (0.83-4.51); Absolute Neutrophil Count 3.6 X10^3/uL (2.0-7.7); Basophil# 0.08 X10^3/uL; Basophil% 1.2 % (0-1); Eosinophil# 0.34 X10^3/uL; Eosinophils% 5.2 % (0-5); Hematocrit 33.5 % (37-47); Hemoglobin 10.4 g/dL (12.0-15.0); Lymphocyte # 2.05 X10^3/ul (0.83-4.51); Lymphocyte % 31.1 % (19-41); Mean Corpuscular Hgb 25.4 pg (27.0-32.0); Mean Corpuscular Volume 81.7 fL (81-99); Mean Platelet Vol. 9.3 fl (6.2-12.0); Monocyte# 0.48 X10^3/uL; Monocyte% 7.3 % (0-10); NRBC Flagged by Analyzer 0 % (0-5); Neutrophil # 3.64 X10^3/uL (2.7-7.7); Platelet Count 273 K/mm3 (150-450); RBC Distribution Width CV 16.2 % (11.6-14.6); White Blood Count 6.6 K/mm3 (4.4-11.0)
[2022-10-05 15:08] LABS: Anion Gap 5 (5-15); BUN 16 mg/dL (7-18); Chloride 111 mmol/L (98-107); Creatinine, Serum 0.64 mg/dL (0.55-1.02); EST Glomerular Filtration Rate 122 mL/min (>60); Est Glom Filt Rate - Afr Amer 147 mL/min (>60); Estimated Creatinine Clearance 118.05 ml/min; Glucose 97 mg/dL (74-106); Potassium 4.2 mmol/L (3.5-5.1); Sodium Level 140 mmol/L (136-145)
[2022-10-05 15:13] LABS: Amphetamine Urine VISTA POSITIVE (<1000 ng/mL); Barbiturate Urine VISTA NEGATIVE (< 200 ng/mL); Benzodiazepine Urine VISTA NEGATIVE (< 200 ng/mL); Cocaine Urine VISTA POSITIVE (< 300 ng/mL); Ecstacy Urine VISTA NEGATIVE (< 500 ng/mL); Methadone Urine VISTA NEGATIVE (< 300 ng/mL); PCP Urine VISTA NEGATIVE (< 25 ng/mL); THC Urine VISTA POSITIVE (< 50 ng/mL); Vista UDS pH Range 6
[2022-10-05 15:29] LABS: Internal QC Validated? YES +Cl - CLEAR BKGD; Pregnancy, Serum, hCG Quali. NEGATIVE Negative
[2022-10-05 15:37] LABS: Alcohol, Blood (Medical)-Serum < 3.0 mg/dL
--- NOTE | 2022-10-05 15:49 | EX.ED.DYSGE1 ---
HPI History of Present Illness Chief Complaint: Substance Abuse [facility] Medical History 37 weeks gestation of Anemia due to blood loss Anxiety Chlamydia infection affecting Chronic hypertension Depression Diabetes Encounter for planned induction of labor Genital herpes affecting Gonorrhea affecting Hepatitis History of bipolar disorder History of chlamydia History of drug use History of herpes genitalis History of hemorrhage History of pre-eclampsia History of syphilis Hypertension Limited care Marijuana use during Obesity hemorrhage Psychiatric disorder Syphilis affecting Tobacco use affecting , antepartum Type 2 diabetes mellitus Home Medications NK 08/13/22 [History Last Taken Unknown] Allergy/AdvReac Type Severity Reaction Status Date / Time No Known Allergies Allergy Verified 10/05/22 14:25 Surgical History Delivery by section History of surgery Social History Smoking Status: Heavy Smoker (>10/day) substance use type: marijuana, heroin and methamphetamine EXAM Physical Exam Const Vital Signs: 10/05/22 14:23 Temperature 97.1 F L Temperature Source Temporal Pulse Rate 99 Respiratory Rate 18 Blood Pressure 131/88 H Blood Pressure Mean 102 Pulse Ox 99 Oxygen Delivery Method Room Air MDM MDM MDM Narrative Medical decision making narrative: HISTORY OF PRESENT ILLNESS: 22-year-old female here for detox from fentanyl, meth and cocaine. Notes she last used drugs this morning. She further states she last used fentanyl this morning. Does not have chest pain or shortness of breath. She is concerned she may be . Denies any abdominal pain, vaginal bleeding or discharge. Denies any suicidal homicidal ideation. Denies any auditory visual hallucinations. Denies any back pain, chest pain or fever. REVIEW OF SYSTEMS: Pertinent positives: Substance abuse Pertinent negatives: Chest pain, shortness of breath, focal weakness, back pain PHYSICAL EXAM: Nursing triage notes reviewed, Vital signs reviewed Constitutional: please see mdm HENT: MMM Eyes: Pupils equal round and reactive to light, Extraocular muscles intact Neck: No stridor, no JVD, full neck ROM Lungs: Clear to auscultation, No wheezing or rales. No increased work of breathing, no conversational dyspnea, no accessory muscle use, no nasal flaring. No respiratory distress noted Heart: Regular rate and rhythm, No murmurs, No rubs and No gallops, 2+ distal pulses (radial, femoral, posterior tibial) in all extremities Abdomen: Soft, there is no tenderness, rigidity, rebound or guarding, no obvious peritoneal signs, no palpable pulsatile abdominal masses, no auscultated abdominal bruit : No CVAT Extremities: No edema Neuro: No focal neurological deficits, cranial nerves II through XII intact, 5/5 strength in all extremities. Intact sensation to light touch in all extremities, 2+ reflexes bilateral patella tendons. Normal gait. No ataxia. Skin: No rash or lesions noted Psych: Normal affect, intact goal-directed thought process. MEDICAL DECISION MAKING: Chief Complaint: Substance abuse, requesting detox External records reviewed: Last ED visit in July 2022 Factors affecting care: Polysubstance Social determinants of health: Polysubstance abuse Consults: Internal medicine ALL IMAGES (IF OBTAINED) HAVE BEEN PERSONALLY REVIEWED AND INTERPRETED BY MYSELF. EKG with normal sinus rhythm, normal axis, normal intervals, no STEMI MDM Narrative: Patient was hemodynamically stable, afebrile, nontoxic. No stigmata of endocarditis or epidural abscess on initial exam. Medical clearance for detox admission was undertaken. Patient was medically cleared. She is appropriate for admission to the hospitalist service for opiate detox Discussed with hospitalist. The patient and/or family, caregivers express understanding. The patient and/or family, caregivers agrees with the plan. Total critical care time today provided was at least 0 minutes. This excludes separately billable procedures. Critical care time (if documented) is secondary to the patient having high probability of clinically significant/life threatening deterioration in the patient's condition which required my urgent intervention. Shared decision making: I will have a discussion with the patient and or visitors regarding risk/benefits of further testing or admission. They will be made aware of of the risk/benefits inherent in this decision they will be given the opportunity to voice understanding. Lab Data Attestation: I reviewed the patient's lab results. Lab results narrative: CBC without leukocytosis, noted anemia (improved from prior), no thrombocytopenia Serum alcohol negative Urine test is negative BMP without evidence of significant electrolyte abnormalities, no anion gap, no acute kidney injury. Urine drug screen positive for amphetamines, cocaine and THC Labs: Laboratory Results - last 24 hr 10/05/22 10/05/22 14:39 14:44 WBC 6.6 RBC 4.10 L Hgb 10.4 L Hct 33.5 L MCV 81.7 MCH 25.4 L MCHC 31.0 L RDW Std Deviation 48.0 H RDW Coeff of Ofelia 16.2 H Plt Count 273 MPV 9.3 Immature Gran % (Auto) 0.200 Neut % (Auto) 55.0 Lymph % (Auto) 31.1 [place] % (Auto) 7.3 Eos % (Auto) 5.2 H Baso % (Auto) 1.2 H Absolute Neuts (auto) 3.6 Absolute Lymphs (auto) 2.05 Nucleated RBC % 0 Sodium 140 Potassium 4.2 Chloride 111 H Carbon Dioxide 24.0 Anion Gap 5 BUN 16 Creatinine 0.64 Estim Creat Clear Calc 118.05 Est GFR (MDRD) Af Amer 147 Est GFR (MDRD) Non-Af 122 BUN/Creatinine Ratio 25.0 H Glucose 97 Calcium 9.0 Serum , Qual NEGATIVE Urine Opiates Screen NEGATIVE Urine Methadone Screen NEGATIVE Ur Barbiturates Screen NEGATIVE Ur Phencyclidine Scrn NEGATIVE Ur Amphetamines Screen POSITIVE H MDMA (Ecstasy) Screen NEGATIVE U Benzodiazepines Scrn NEGATIVE Urine Cocaine Screen POSITIVE H U Cannabinoids Screen POSITIVE H Ur Drug Screen Comment Ethyl Alcohol < 3.0 Discharge Plan Dx/Rx/DC Orders Clinical Impression: Admitted to substance misuse detoxification center, Polysubstance abuse Disposition Disposition: Acute Care Hospital [facility]
--- NOTE | 2022-10-05 15:54 | EKG12_ITS ---
Test Reason : DETOX Blood Pressure : / mmHG Vent. Rate : 073 BPM Atrial Rate : 073 BPM P-R Int : 132 ms QRS Dur : 078 ms QT Int : 376 ms P-R-T Axes : 020 064 048 degrees QTc Int : 414 ms Sinus rhythm with marked sinus arrhythmia Otherwise normal ECG Confirmed by VAMSI RICCI, FAUSTINO ([id number]), managing editor ANGELICA ISIDRO ([id number]) on 10/06/2022 2:24:04 PM Referred By: Confirmed By:FAUSTINO AGUSTIN MD
--- NOTE | 2022-10-05 16:35 | PCM.HP.STD ---
HPI - General General Date of Admission: 10/05/22 Date of Service: 10/05/22 Chief Complaint: Fatigue and generalized aches HPI Narrative CLAIR BRADY, is a 22 F who presents with fatigue and generalized aches. Patient has past medical history significant for polysubstance abuse including fentanyl, crack cocaine, methamphetamine as well as THC. Patient last use of fentanyl was on the morning of admission. She admitted to injecting as well as smoking. An assessment of acute opioid withdrawal was made on admission admitted to regular nursing floor for further management. [facility] Medical History (Updated 10/05/22 @ 16:[address] Inderjit Ballard MD) 37 weeks gestation of Anemia due to blood loss Anxiety Chlamydia infection affecting Chronic hypertension Depression Diabetes Encounter for planned induction of labor Genital herpes affecting Gonorrhea affecting Hepatitis History of bipolar disorder History of chlamydia History of drug use History of herpes genitalis History of hemorrhage History of pre-eclampsia History of syphilis Hypertension Limited care Marijuana use during Obesity Opiate addiction hemorrhage Psychiatric disorder Syphilis affecting Tobacco use affecting , antepartum Type 2 diabetes mellitus Home Medications NK 08/13/22 [History Last Taken Unknown] Allergy/AdvReac Type Severity Reaction Status Date / Time No Known Allergies Allergy Verified 10/05/22 14:25 no significant family history Surgical History Delivery by section History of surgery Social History Smoking Status: Heavy Smoker (>10/day) substance use type: marijuana, heroin and methamphetamine ROS ROS Narrative GENERAL: Generalized aches HEENT: denies headache, sinus congestion, or drainage, dysphagia RESPIRATORY: denies cough, sputum production, shortness of breath, dyspnea on exertion CARDIAC: denies chest pain, palpitations, orthopnea, PND GASTROINTESTINAL: denies abdominal pain, nausea, vomiting, melena, GENITOURINARY: denies dysuria, urgency, frequency, heamaturia EXTREMITY: denies swelling MUSCULOSKELETAL: denies current joint pain or tenderness NEUROLOGIC: denies focal numbness, weakness, tingling HEMATOLOGIC: denies easy bruising and/or hemorrhage INTEGUMENT: denies rashes PSYCHIATRIC: denies suicidal or homicidal ideation Vital Signs Vital Signs Vital Signs: 10/05/22 14:23 Temperature 97.1 F L Temperature Source Temporal Pulse Rate 99 Respiratory Rate 18 Blood Pressure 131/88 H Blood Pressure Mean 102 Pulse Ox 99 Oxygen Delivery Method Room Air Weight Weight: 84.368 kg Body Mass Index (BMI) 31.9 Physical Exam Narrative GENERAL: cooperative HEENT: Atraumatic; normocephalic EYES; Anicteric, Normal Conjunctiva NECK; supple, normal thyroid, RESPIRATORY: Diminished to auscultation CARDIOVASCULAR: Regular S1 S2, GI: soft, normoactive bowel sounds, : No Renal angle tenderness; EXTREMITIES: No edema, no clubbing, MUSCULOSKELETAL: no muscle wasting NEURO: Awake; no lateralizing signs. SKIN: No Rash PSYCH; Flat affect Results Lab / Micro Data 10/05/22 14:39 10/05/22 14:39 Labs: Laboratory Results - last 24 hr 10/05/22 14:39: WBC 6.6, RBC 4.10 L, Hgb 10.4 L, Hct 33.5 L, MCV 81.7, MCH 25.4 L, MCHC 31.0 L, RDW Std Deviation 48.0 H, RDW Coeff of Ofelia 16.2 H, Plt Count 273, MPV 9.3, Immature Gran % (Auto) 0.200, Neut % (Auto) 55.0, Lymph % (Auto) 31.1, [place] % (Auto) 7.3, Eos % (Auto) 5.2 H, Baso % (Auto) 1.2 H, Absolute Neuts (auto) 3.6, Absolute Lymphs (auto) 2.05, Nucleated RBC % 0, Sodium 140, Potassium 4.2, Chloride 111 H, Carbon Dioxide 24.0, Anion Gap 5, BUN 16, Creatinine 0.64, Estim Creat Clear Calc 118.05, Est GFR (MDRD) Af Amer 147, Est GFR (MDRD) Non-Af 122, BUN/Creatinine Ratio 25.0 H, Glucose 97, Calcium 9.0, Serum , Qual NEGATIVE, Ethyl Alcohol < 3.0 10/05/22 14:44: Urine Opiates Screen NEGATIVE, Urine Methadone Screen NEGATIVE, Ur Barbiturates Screen NEGATIVE, Ur Phencyclidine Scrn NEGATIVE, Ur Amphetamines Screen POSITIVE H, MDMA (Ecstasy) Screen NEGATIVE, U Benzodiazepines Scrn NEGATIVE, Urine Cocaine Screen POSITIVE H, U Cannabinoids Screen POSITIVE H, Ur Drug Screen Comment Assessment & Plan Assessment/Plan (1) Acute opioid withdrawal: PLAN: Plan Patient is a 52-year-old female presented with acute opioid withdrawal 1. 1. Acute opioid withdrawal - Patient has been admitted to regular nursing floor, managed buprenorphine taper along with other adjunctive medications for medical stabilization 2. Polysubstance abuse ? Including opioid, methamphetamine, crack cocaine and THC. Patient counseled on cessation 3. Tobacco dependence - Counseled on cessation, offered nicotine patch for tobacco cravings 4. Bipolar disorder ? Patient to follow-up with primary care physician for treatment 5. Class I obesity with BMI of 32 ? Weight loss advised 6. DVT prophylaxis ? Low risk Time spent in the patient's overall evaluation,decision-making process, review of diagnostic data, adjustment of management, discussion with other providers, nursing nursing and ancillary staff involved in patient's care documentation, 55 minutes Charges/Coding Visit Charges Inpatient E&M: 19915 Init Hosp L2
[2022-10-05 17:25] VITALS: BP 113/59; PULSE 72; RESP 16; TEMP 36.6; O2SAT 98
[2022-10-05 18:15] VITALS: BP 120/67; PULSE 74; RESP 16; TEMP 36.7; O2SAT 100; BMI 31.9
[2022-10-05 19:56] VITALS: BP 121/71; PULSE 72; RESP 18; TEMP 36.7; O2SAT 98
[2022-10-05] MEDS: Gabapentin 300 MG Capsule PO (20:23)
[2022-10-05] MEDS: Ibuprofen 600 MG Tablet PO (20:23)
[2022-10-05] MEDS: Buprenorphine HCl 2 MG TAB.SUBL SL (20:24)
[2022-10-06 02:47] VITALS: BP 107/71; PULSE 68; RESP 16; TEMP 36.8
[2022-10-06] MEDS: Buprenorphine HCl 2 MG TAB.SUBL SL ×3 (04:13→20:33)
[2022-10-06] MEDS: Dicyclomine 10 MG Capsule 20 MG PO (05:41)
[2022-10-06] MEDS: Ondansetron 8 MG Tablet PO (05:41)
[2022-10-06] MEDS: hydrOXYzine PAM 25 MG Capsule 50 MG PO (05:41)
--- NOTE | 2022-10-06 07:46 | PCM.PN.HOSP ---
Reason for Visit Reason for Visit: Diagnoses Opioid use, unspecified with withdrawal (10/05/22) Subjective Subjective Patient seen complains of headache otherwise had an uneventful evening Objective Data Objective Data Vital Signs: Vital Signs Temp Pulse Resp BP Pulse Ox O2 Del Method O2 Flow Rate 98.2 F 68 16 107/71 98 Room Air 96 10/06/22 02:47 10/06/22 02:47 10/06/22 02:47 10/06/22 02:47 10/05/22 19:56 10/06/22 02:47 10/06/22 02:47 Oxygen Flow Rate (L/min) 96 Oxygen Delivery Method Room Air Weight: 84.368 kg Body Mass Index (BMI) 31.9 Lab / Micro Data 10/05/22 14:39 10/05/22 14:39 Labs: Laboratory Results - last 24 hr 10/05/22 14:39: WBC 6.6, RBC 4.10 L, Hgb 10.4 L, Hct 33.5 L, MCV 81.7, MCH 25.4 L, MCHC 31.0 L, RDW Std Deviation 48.0 H, RDW Coeff of Ofelia 16.2 H, Plt Count 273, MPV 9.3, Immature Gran % (Auto) 0.200, Neut % (Auto) 55.0, Lymph % (Auto) 31.1, [place] % (Auto) 7.3, Eos % (Auto) 5.2 H, Baso % (Auto) 1.2 H, Absolute Neuts (auto) 3.6, Absolute Lymphs (auto) 2.05, Nucleated RBC % 0, Sodium 140, Potassium 4.2, Chloride 111 H, Carbon Dioxide 24.0, Anion Gap 5, BUN 16, Creatinine 0.64, Estim Creat Clear Calc 118.05, Est GFR (MDRD) Af Amer 147, Est GFR (MDRD) Non-Af 122, BUN/Creatinine Ratio 25.0 H, Glucose 97, Calcium 9.0, Serum , Qual NEGATIVE, Ethyl Alcohol < 3.0 10/05/22 14:44: Urine Opiates Screen NEGATIVE, Urine Methadone Screen NEGATIVE, Ur Barbiturates Screen NEGATIVE, Ur Phencyclidine Scrn NEGATIVE, Ur Amphetamines Screen POSITIVE H, MDMA (Ecstasy) Screen NEGATIVE, U Benzodiazepines Scrn NEGATIVE, Urine Cocaine Screen POSITIVE H, U Cannabinoids Screen POSITIVE H, Ur Drug Screen Comment Physical Exam Narrative GENERAL: cooperative HEENT: Atraumatic; normocephalic EYES; Anicteric, Normal Conjunctiva NECK; supple, normal thyroid, RESPIRATORY: Diminished to auscultation CARDIOVASCULAR: Regular S1 S2, GI: soft, normoactive bowel sounds, : No Renal angle tenderness; EXTREMITIES: No edema, no clubbing, MUSCULOSKELETAL: no muscle wasting NEURO: Awake; no lateralizing signs. SKIN: No Rash PSYCH; Flat affect Assessment & Plan Assessment/Plan (1) Acute opioid withdrawal: PLAN: Plan Patient is a 52-year-old female presented with acute opioid withdrawal 1. 1. Acute opioid withdrawal - Patient has been admitted to regular nursing floor, managed buprenorphine taper along with other adjunctive medications for medical stabilization ? 10/06/2022 tolerating the Subutex taper 2. Polysubstance abuse ? Including opioid, methamphetamine, crack cocaine and THC. Patient counseled on cessation 3. Tobacco dependence - Counseled on cessation, offered nicotine patch for tobacco cravings 4. Bipolar disorder ? Patient to follow-up with primary care physician for treatment 5. Class I obesity with BMI of 32 ? Weight loss advised 6. DVT prophylaxis ? Low risk Time spent in the patient's overall evaluation,decision-making process, review of diagnostic data, adjustment of management, discussion with other providers, nursing nursing and ancillary staff involved in patient's care documentation, 35 minutes Charges/Coding Visit Charges Inpatient E&M: 28267 Subs Hosp L2
[2022-10-06 09:40] VITALS: BP 113/63; PULSE 72; RESP 16; TEMP 36.5; O2SAT 96
--- NOTE | 2022-10-06 11:38 | ADDICTION ---
This signwriter met with PT to conduct ASAM, MSE, AUDIT, DUDIT assessments and to plan for d/c. PT A+Ox4 and participated actively. All assessments completed and placed in PT's chart. PT plans to f/u with [facility] in [place] for follow-up in patient treatment services. [facility] will provide transportation post d/c from [facility].
[2022-10-06] MEDS: Acetaminophen 500 MG Tablet PO (14:10)
[2022-10-06 14:28] VITALS: BP 114/47; PULSE 73; RESP 18; TEMP 36.5; O2SAT 97
--- NOTE | 2022-10-06 15:44 | CHAPLAIN ---
Type of Pastoral Visit _x__ Initial Visit ___ Follow-up Visit ___ On-call Visit ___ General Patient Visit ___ Spiritual Assessment ___ Family Conference ___ Bereavement ___ Rapid Response ___ Code Blue ___ Other (describe below) Pastoral Care Referral From _x__ Patient ___ Family ___ Nurse ___ Physician ___ Director Of State ___ Perfusionist ___ Other (describe below) Sacrament/Intervention _x__ Active listening ___ Anointing ___ Catholic ___ Bereavement ___ Communion ___ Nadira exploration ___ ___ Life review _x__ Prayer ___ Reconciliation ___ Sacrament of Sick ___ Supportive presence ___ Wedding ___ Other (describe below) Pastoral Comments patient welcomes visit and sits up in the bed; pt talks of her children in foster care and how she wants to get them back when she is healthy; pt agrees that prayer would be good for her and then she falls asleep while sitting up in bed; pt does not respond to her name at this time and continues to sleep in an upright position
[2022-10-06 20:30] VITALS: BP 115/61; PULSE 81; RESP 18; TEMP 36.7; O2SAT 96
[2022-10-07 02:25] VITALS: BP 112/65; PULSE 86; RESP 18; TEMP 36.8; O2SAT 95
[2022-10-07] MEDS: Buprenorphine HCl 2 MG TAB.SUBL SL (04:38)
[2022-10-07] MEDS: Ondansetron 8 MG Tablet PO (07:44)
--- NOTE | 2022-10-07 07:48 | PCM.PN.HOSP ---
Reason for Visit Reason for Visit: Diagnoses Opioid use, unspecified with withdrawal (10/05/22) Subjective Subjective Patient has tolerated Subutex taper well so far plan for patient to be discharged today for subsequent inpatient treatment Objective Data Objective Data Vital Signs: Vital Signs Temp Pulse Resp BP Pulse Ox O2 Del Method O2 Flow Rate 98.2 F 86 18 112/65 95 Room Air 96 10/07/22 02:25 10/07/22 02:25 10/07/22 02:25 10/07/22 02:25 10/07/22 02:25 10/07/22 02:42 10/06/22 02:47 Oxygen Flow Rate (L/min) 96 Oxygen Delivery Method Room Air Weight: 84.368 kg Body Mass Index (BMI) 31.9 Lab / Micro Data 10/05/22 14:39 10/05/22 14:39 Physical Exam Narrative GENERAL: cooperative HEENT: Atraumatic; normocephalic EYES; Anicteric, Normal Conjunctiva NECK; supple, normal thyroid, RESPIRATORY: Diminished to auscultation CARDIOVASCULAR: Regular S1 S2, GI: soft, normoactive bowel sounds, : No Renal angle tenderness; EXTREMITIES: No edema, no clubbing, MUSCULOSKELETAL: no muscle wasting NEURO: Awake; no lateralizing signs. SKIN: No Rash PSYCH; Flat affect Assessment & Plan Assessment/Plan (1) Acute opioid withdrawal: PLAN: Plan Patient is a 52-year-old female presented with acute opioid withdrawal 1. 1. Acute opioid withdrawal - Patient has been admitted to regular nursing floor, managed buprenorphine taper along with other adjunctive medications for medical stabilization ? 10/06/2022 tolerating the Subutex taper 2. Polysubstance abuse ? Including opioid, methamphetamine, crack cocaine and THC. Patient counseled on cessation 3. Tobacco dependence - Counseled on cessation, offered nicotine patch for tobacco cravings 4. Bipolar disorder ? Patient to follow-up with primary care physician for treatment 5. Class I obesity with BMI of 32 ? Weight loss advised 6. DVT prophylaxis ? Low risk Time spent in the patient's overall evaluation,decision-making process, review of diagnostic data, adjustment of management, discussion with other providers, nursing nursing and ancillary staff involved in patient's care documentation, 35 minutes Charges/Coding Visit Charges Inpatient E&M: 75118 Subs Hosp L2
--- NOTE | 2022-10-07 08:29 | PCM.DC.SUM ---
Providers Date of Admission: 10/05/22 Date of Discharge: 10/07/22 Primary Care Physician: Birgit Primary Care Phys Reason For Visit: ACUTE OPIOID WITHDRAWAL Diagnosis Discharge Diagnosis (1) Acute opioid withdrawal: Status: Acute Code(s): F11.93 - Opioid use, unspecified with withdrawal Plan Patient is a 52-year-old female presented with acute opioid withdrawal 1. 1. Acute opioid withdrawal - Patient has been admitted to regular nursing floor, managed buprenorphine taper along with other adjunctive medications for medical stabilization ? 10/06/2022 tolerating the Subutex taper ? 10/07/2022 patient was discharged and transferred to an inpatient treatment facility 2. Polysubstance abuse ? Including opioid, methamphetamine, crack cocaine and THC. Patient counseled on cessation 3. Tobacco dependence - Counseled on cessation, offered nicotine patch for tobacco cravings 4. Bipolar disorder ? Patient to follow-up with primary care physician for treatment 5. Class I obesity with BMI of 32 ? Weight loss advised 6. DVT prophylaxis ? Low risk Time spent in the patient's overall evaluation,decision-making process, review of diagnostic data, adjustment of management, discussion with other providers, nursing nursing and ancillary staff involved in patient's care documentation, 35 minutes Medications at Discharge Home Medications NK 08/13/22 Hospital Course Summary of Care Provided Minutes Spent on Discharge: 35 Physical Exam Narrative GENERAL: cooperative HEENT: Atraumatic; normocephalic EYES; Anicteric, Normal Conjunctiva NECK; supple, normal thyroid, RESPIRATORY: Diminished to auscultation CARDIOVASCULAR: Regular S1 S2, GI: soft, normoactive bowel sounds, : No Renal angle tenderness; EXTREMITIES: No edema, no clubbing, MUSCULOSKELETAL: no muscle wasting NEURO: Awake; no lateralizing signs. SKIN: No Rash PSYCH; Flat affect Weight / BMI Weight Weight: 84.368 kg Body Mass Index (BMI) 31.9 ABG / Lab / Microbiology Data 10/05/22 14:39 10/05/22 14:39 D/C Instructions Discharge Diet: No restrictions Discharge Activity: Return to Normal Activity Call your doctor if you observe: Fever of 101 or Higher, Shortness of breath, Fainting spells and Chest pain Meaningful Use Info Meaningful Use Diagnoses (Choose all that apply): None applicable Discharge Plan Admission Admit Date/Time: 10/05/22 16:28 Attending Provider: Inderjit Ballard Primary Care Provider: Care Physician,No Primary Discharge Orders/Prescriptions Prescriptions: No Action NK Referrals / Follow Up: Care Physician,No Primary [Primary Care Provider] - Disposition Disposition (needs filled in before D/C Order can be placed): Home, Self Care Charges/Coding Visit Charges Inpatient E&M: 77374 Disch Hosp >30min
[2022-10-07 08:32] VITALS: BP 123/60; PULSE 91; RESP 18; TEMP 36.7; O2SAT 96
== END 2022-10-07 09:12 | DRG 773 ==
LOC: ED 16:32 → MS3 16:58
PROVIDERS: Admitting Provider Internal Medicine; Emergency Provider Emergency Medicine; Visit Provider Internal Medicine
DX: F11.23 Opioid dependence with withdrawal (principal); F14.19 Cocaine abuse with unspecified cocaine-induced disorder; F15.10 Other stimulant abuse, uncomplicated; F31.9 Bipolar disorder, unspecified; E11.9 Type 2 diabetes mellitus without complications; E66.9 Obesity, unspecified; F17.200 Nicotine dependence, unspecified, uncomplicated; F12.10 Cannabis abuse, uncomplicated; Z68.32 Body mass index [BMI] 32.0-32.9, adult; Z79.899 Other long term (current) drug therapy; I10 Essential (primary) hypertension
CPT/HCPCS: 36415; 80048; 80307; 82077; 84703; 85025; 93005; 99221; 99283; 99406; G0378

== ENCOUNTER 2022-11-26 08:53 | Emergency (ER) | payer MEDICAID, SELFPAY ==
[2022-11-26 08:53] VITALS: BP 145/89; PULSE 100; RESP 16; TEMP 36.6; O2SAT 100; BMI 35.2
--- NOTE | 2022-11-26 09:28 | ED.VIS.DENTA ---
HPI History of Present Illness Chief Complaint: Dental Narrative Narrative: 22-year-old female who denies significant past medical history presents with dental pain that she has had for the last few days. It is mainly her wisdom teeth in the left upper and lower jaw. Fevers or chills, no nausea or vomiting. She has not seen a dentist in quite some time, not even in the last year. She states she last received antibiotics for dental pain when she was in rehab a few months ago for opioid use. No exacerbating or alleviating factors. She stated to triage that she is here because this is the only place that she can come for antibiotics. [facility] Medical History 37 weeks gestation of Anemia due to blood loss Anxiety Chlamydia infection affecting Chronic hypertension Depression Diabetes Encounter for planned induction of labor Genital herpes affecting Gonorrhea affecting Hepatitis History of bipolar disorder History of chlamydia History of drug use History of herpes genitalis History of hemorrhage History of pre-eclampsia History of syphilis Hypertension Limited care Marijuana use during Obesity Opiate addiction hemorrhage Psychiatric disorder Syphilis affecting Tobacco use affecting , antepartum Type 2 diabetes mellitus Home Medications penicillin V potassium 500 mg tablet 500 mg PO TID #30 tabs 11/26/22 [Rx Last Taken Unknown] Allergy/AdvReac Type Severity Reaction Status Date / Time No Known Allergies Allergy Verified 11/26/22 08:57 Surgical History Delivery by section History of surgery Social History Smoking Status: Heavy Smoker (>10/day) substance use type: marijuana, heroin and methamphetamine ROS ROS ED ROS Narrative Constitutional: No fever, no chills. HEENT: No sore throat. No neck pain. No loss of vision. No rhinorrhea. Positive dental pain and wisdom tooth area left upper and lower jaws. Cardiovascular: No chest pain. No palpitations. No pedal edema. Respiratory: No cough, no shortness of breath. Abdominal: No abdominal pain. No nausea. No vomiting. Genitourinary: No dysuria. No hematuria. Musculoskeletal: No myalgias. No arthralgias. Neurologic: No headaches. No dizziness. No lightheadedness. Skin: No rash. No change in color. Psychiatric: No depression. No anxiety. EXAM Physical Exam Narrative Exam Narrative: Afebrile. Vital signs noted. HEENT: Normocephalic. Atraumatic. PERRL, EOMI. Neck soft and supple. No point tenderness or step off. Positive dental caries in left lower jaw, third molar, upper and lower. No fluctuance of the gum. Airway patent. No drooling or trismus. Cardiovascular: Regular rate and rhythm. No murmurs, rubs, or gallops appreciated. Respiratory: No tachypnea. Lungs clear to auscultation bilaterally. Gastrointestinal: Abdomen soft, nontender, with normoactive bowel sounds. No rebound or guarding. Neurological: Awake intermittently. Alert. Nonfocal, nonlateralizing. Skin: No rash. Normal color. No pallor. Musculoskeletal: No pedal edema. Full range of motion extremities. Const Vital Signs: 11/26/22 08:53 Temperature 97.8 F Temperature Source Temporal Pulse Rate 100 Respiratory Rate 16 Blood Pressure 145/89 H Blood Pressure Mean 107 Pulse Ox 100 Oxygen Delivery Method Room Air MDM MDM MDM Narrative Medical decision making narrative: I do not feel that opioids are indicated as she recently was treated for detox from opioids. She will be placed on penicillin VK and prescription written to take 3 times daily. She was instructed to follow-up with a dentist. I do not feel any imaging or laboratory work is indicated and I do not feel that she requires observation at this time. There is no gingival fluctuance where I&D can be performed. Smoking cessation was discussed. Disposition is discharged home in stable condition. History & Record Review Additional record(s) reviewed:: Prior ED visit Discharge Plan Triage Chief Complaint: Dental ED Provider: James Dangelo Dx/Rx/DC Orders Clinical Impression: Dental caries, Pain, dental Instructions: ED Dental Pain, ED Dental Cavity Prescriptions: New penicillin V potassium 500 mg tablet 500 mg PO TID Qty: 30 0RF Primary Care Provider: Care Physician,No Primary Referrals: Care Physician,No Primary [Primary Care Provider] - Activity Restrictions/Additional Instructions: Follow-up with a dentist as soon as possible. Disposition Disposition: Home, Self Care
== END 2022-11-26 10:29 | disposition home or self-care (01) ==
PROVIDERS: Emergency Provider Emergency Medicine; Visit Provider Emergency Medicine
DX: K02.9 Dental caries, unspecified (principal); K08.89 Other specified disorders of teeth and supporting structures; F12.90 Cannabis use, unspecified, uncomplicated; F17.200 Nicotine dependence, unspecified, uncomplicated
CPT/HCPCS: 99282

== ENCOUNTER 2022-12-05 16:40 | Emergency (ER) | payer MEDICAID, SELFPAY ==
[2022-12-05 16:41] VITALS: BP 123/85; PULSE 107; RESP 18; TEMP 36.4; O2SAT 100; BMI 32.1
[2022-12-05 19:05] VITALS: PULSE 100; RESP 14; O2SAT 97
--- NOTE | 2022-12-05 19:18 | EDS_ITS ---
HPI History of Present Illness Chief Complaint: Substance Abuse Informant: patient Narrative Narrative: Patient presents requesting detox help. She is currently using fentanyl and heroin. She states she both smokes and injects. Last use was at 4 AM this morning. She presents at 7 PM for evaluation. Patient denies alcohol use. Patient states that she was here in September of this year and then sent to a rehab facility in [facility]. She states due to some stressors when she got out of there she relapsed. She is hoping to go back to the same rehab facility once she undergoes the initial detox. [facility] Medical History 37 weeks gestation of Anemia due to blood loss Anxiety Chlamydia infection affecting Chronic hypertension Depression Diabetes Encounter for planned induction of labor Genital herpes affecting Gonorrhea affecting Hepatitis History of bipolar disorder History of chlamydia History of drug use History of herpes genitalis History of hemorrhage History of pre-eclampsia History of syphilis Hypertension Limited care Marijuana use during Obesity Opiate addiction hemorrhage Psychiatric disorder Syphilis affecting Tobacco use affecting , antepartum Type 2 diabetes mellitus Home Medications penicillin V potassium 500 mg tablet 500 mg PO TID #30 tabs 11/26/22 [Rx Last Taken Unknown] Allergy/AdvReac Type Severity Reaction Status Date / Time No Known Allergies Allergy Verified 12/05/22 16:44 Surgical History Delivery by section History of surgery Social History Smoking Status: Heavy Smoker (>10/day) substance use type: marijuana, heroin and methamphetamine ROS ROS ED Constitutional Constitutional ED: Denies chills or fever(s) Eyes Eyes: Denies change in vision or discharge from eye(s) ENT ENT ED: Reports other Details: Dental pain ; Denies discharge from eye(s), rhinorrhea or sore throat Cardiovascular Cardiovascular: Denies chest pain or palpitations Respiratory/Chest Respiratory/Chest: Denies cough or dyspnea Gastrointestinal Gastrointestinal: Denies abdominal pain, diarrhea, nausea or vomiting Genitourinary Genitourinary ED: Denies dysuria Musculoskeletal Musculoskeletal: Denies back pain or extremity pain Integumentary Denies Abrasions or rash Neurologic Neurologic: Denies headache(s) or weakness Psychiatric Psychiatric: Denies anxiety or depression Allergic/Immunologic Allergic/Immunologic ED: Denies lip swelling or urticaria EXAM Physical Exam Const Vital Signs: 12/05/22 16:41 12/05/22 19:05 12/05/22 20:00 Temperature 97.5 F L Temperature Source Temporal Pulse Rate 107 H 100 101 H Respiratory Rate 18 14 16 Blood Pressure 123/85 H 129/75 H Blood Pressure Mean 97 93 Pulse Ox 100 97 98 Oxygen Delivery Method Room Air Room Air 12/05/22 21:11 12/05/22 21:11 Temperature 97.8 F Temperature Source Temporal Pulse Rate 101 H 101 H Respiratory Rate 16 16 Blood Pressure 118/74 118/74 Blood Pressure Mean 88 88 Pulse Ox 99 99 Oxygen Delivery Method Positive well nourished and well developed General Appearance ED: well developed HEENT Reports normocephalic and head/scalp atraumatic Eyes PERRL and EOMs intact bilaterally Neck supple Chest Wall inspection of chest normal and palpation of chest normal Resp normal respiratory effort and clear to auscultation bilaterally Cardio regular rate and regular rhythm GI normal to inspection, nondistended, normoactive bowel sounds Palpation: soft Extremity normal to inspection Neuro oriented x3 and no sensory deficits noted Sensorium / Orientation: alert Motor Exam: strength 5/5 throughout Psych mental status grossly normal Skin no rashes or lesions noted MDM MDM MDM Narrative Medical decision making narrative: Lab work for clearance for the right program obtained. History & Record Review Discussion w/independent historian: Patient Additional record(s) reviewed:: Prior inpatient record, Prior ED visit and Prior labs Lab Data Attestation: I reviewed the patient's lab results. Labs: Laboratory Results - last 24 hr 12/05/22 12/05/22 19:20 20:00 WBC 6.4 RBC 4.28 Hgb 10.4 L Hct 34.2 L MCV 79.9 L MCH 24.3 L MCHC 30.4 L RDW Std Deviation 49.3 H RDW Coeff of Ofelia 17.1 H Plt Count 275 MPV 8.9 Immature Gran % (Auto) 0.200 Neut % (Auto) 43.3 L Lymph % (Auto) 43.0 H Mchenry % (Auto) 7.1 Eos % (Auto) 5.5 H Baso % (Auto) 0.9 Absolute Neuts (auto) 2.8 Absolute Lymphs (auto) 2.73 Nucleated RBC % 0 Sodium 139 Potassium 3.8 Chloride 106 Carbon Dioxide 26.0 Anion Gap 7 BUN 12 Creatinine 0.52 L Estim Creat Clear Calc 145.30 Est GFR (MDRD) Af Amer 185 Est GFR (MDRD) Non-Af 153 BUN/Creatinine Ratio 22.9 H Glucose 117 H Calcium 8.7 Total Bilirubin 0.50 Direct Bilirubin 0.13 AST 7 L ALT 26 Alkaline Phosphatase 84 Total Protein 7.4 Albumin 3.4 Globulin 4.0 Serum , Qual NEGATIVE Urine Opiates Screen NEGATIVE Urine Methadone Screen NEGATIVE Ur Barbiturates Screen NEGATIVE Ur Phencyclidine Scrn NEGATIVE Ur Amphetamines Screen POSITIVE H MDMA (Ecstasy) Screen POSITIVE H U Benzodiazepines Scrn NEGATIVE Urine Cocaine Screen NEGATIVE U Cannabinoids Screen POSITIVE H Ur Drug Screen Comment Ethyl Alcohol < 3.0 Treatment and Re-Evaluation :: CBC was a white count of 6.4 with a hemoglobin of 10.4. Chemistry studies are unremarkable. LFTs are unremarkable. test negative. EtOH is negative. Talk screen is positive for amphetamines, MDMA, and cannabinoids. I will speak with hospitalist regarding admission for detox. Addendum: After making arrangements to have the patient admitted, I was advised that we cannot admit here due to high bed status. Social work spoke with the patient and she is following up with [facility] tomorrow who will do both her detox as well as her rehab stay. Discharge Plan Triage Chief Complaint: Substance Abuse ED Provider: Jennie Lieberman Dx/Rx/DC Orders Clinical Impression: Desire for detoxification, Opiate abuse, continuous Instructions: ED Opiate Abuse Prescriptions: No Action penicillin V potassium 500 mg tablet 500 mg PO TID Qty: 30 0RF Primary Care Provider: Care Physician,No Primary Referrals: Care Physician,No Primary [Primary Care Provider] - Activity Restrictions/Additional Instructions: Follow-up with tomorrow as scheduled for detox and rehab. Disposition Disposition: Home, Self Care
[2022-12-05 19:32] LABS: Absolute Lymphocyte Count 2.73 X10^3/uL (0.83-4.51); Absolute Neutrophil Count 2.8 X10^3/uL (2.0-7.7); Basophil# 0.06 X10^3/uL; Basophil% 0.9 % (0-1); Eosinophil# 0.35 X10^3/uL; Eosinophils% 5.5 % (0-5); Hematocrit 34.2 % (37-47); Hemoglobin 10.4 g/dL (12.0-15.0); Lymphocyte # 2.73 X10^3/ul (0.83-4.51); Mean Corp Hgb Conc 30.4 g/dL (32-36); Mean Corpuscular Hgb 24.3 pg (27.0-32.0); Mean Corpuscular Volume 79.9 fL (81-99); Mean Platelet Vol. 8.9 fl (6.2-12.0); Monocyte# 0.45 X10^3/uL; Monocyte% 7.1 % (0-10); NRBC Flagged by Analyzer 0 % (0-5); Neutrophil # 2.75 X10^3/uL (2.7-7.7); Neutrophil % 43.3 % (47-70); Platelet Count 275 K/mm3 (150-450); RBC Distribution Width CV 17.1 % (11.6-14.6); RBC Distribution Width SD 49.3 fl (35.1-43.9); Red Blood Count 4.28 M/mm3 (4.2-5.4); White Blood Count 6.4 K/mm3 (4.4-11.0)
[2022-12-05] MEDS: Naproxen 500 MG Tablet PO (19:32)
[2022-12-05 19:42] LABS: Internal QC Validated? YES +Cl - CLEAR BKGD; Pregnancy, Serum, hCG Quali. NEGATIVE Negative
[2022-12-05 19:44] LABS: Alcohol, Blood (Medical)-Serum < 3.0 mg/dL
[2022-12-05 19:49] LABS: AST(SGOT) 7 U/L (15-37); Alanine Aminotransfer ALT/SGPT 26 U/L (13-56); Albumin, Serum 3.4 g/dL (3.2-5.0); Alkaline Phosphatase 84 U/L (45-117); Anion Gap 7 (5-15); BUN 12 mg/dL (7-18); BUN/Creat Ratio 22.9 RATIO (10-20); Bilirubin, Direct 0.13 mg/dL (0.00-0.30); Calcium,Total 8.7 mg/dL (8.5-10.1); Chloride 106 mmol/L (98-107); Creatinine, Serum 0.52 mg/dL (0.55-1.02); EST Glomerular Filtration Rate 153 mL/min (>60); Est Glom Filt Rate - Afr Amer 185 mL/min (>60); Glucose 117 mg/dL (74-106); Potassium 3.8 mmol/L (3.5-5.1); Protein, Total 7.4 g/dL (6.4-8.2); Sodium Level 139 mmol/L (136-145)
[2022-12-05 20:00] VITALS: BP 129/75; PULSE 101; RESP 16; O2SAT 98
[2022-12-05 20:35] LABS: Amphetamine Urine VISTA POSITIVE (<1000 ng/mL); Barbiturate Urine VISTA NEGATIVE (< 200 ng/mL); Benzodiazepine Urine VISTA NEGATIVE (< 200 ng/mL); Cocaine Urine VISTA NEGATIVE (< 300 ng/mL); Ecstacy Urine VISTA POSITIVE (< 500 ng/mL); Methadone Urine VISTA NEGATIVE (< 300 ng/mL); PCP Urine VISTA NEGATIVE (< 25 ng/mL); THC Urine VISTA POSITIVE (< 50 ng/mL); Vista UDS pH Range 5
[2022-12-05 21:11] VITALS: BP 118/74; PULSE 101; RESP 16; TEMP 36.6; O2SAT 99
--- NOTE | 2022-12-05 21:16 | CM.ED ---
Social Work SW informed by slip cover seamstress of limited bed availability. SW to assist patient with locating alternate detox facility. SW met with patient and introduced self and role to patient. Patient agreeable to speak with SW. SW engaged patient in conversation regarding detox and discussed limited bed availability at [facility]. SW offered patient support and assistance to contact treatment navigator to discuss alternate detox options. Patient declines assistance. SW met with patient to review conversation. Patient was told by the treatment navigator to go to [facility] for detox or contact in [place]. Patient familiar with and plans to contact them in the morning to discuss detox options. Patient reports having a ride home and voices no needs or concerns. SW expressed appreciation as patient was very corporative and understanding. SW remains available if additional needs arise. Care team updated Plan: contact to discuss detox options Tana MUKHERJEE, YESIKA
== END 2022-12-05 21:27 | disposition home or self-care (01) ==
PROVIDERS: Emergency Provider Emergency Medicine; Visit Provider Emergency Medicine
DX: F11.10 Opioid abuse, uncomplicated (principal); F12.90 Cannabis use, unspecified, uncomplicated; F17.200 Nicotine dependence, unspecified, uncomplicated
CPT/HCPCS: 80048; 80076; 80307; 82077; 84703; 85025; 99284

== ENCOUNTER 2024-07-28 13:47 | Emergency (ER) | payer MEDICAID, SELFPAY ==
[2024-07-28 13:48] VITALS: BP 129/89; PULSE 106; RESP 19; TEMP 36.7; O2SAT 98; BMI 40.0
--- NOTE | 2024-07-28 15:20 | EKG12_ITS ---
Test Reason : LOWER LEG Blood Pressure : */* mmHG Vent. Rate : 70 BPM Atrial Rate : 70 BPM P-R Int : 144 ms QRS Dur : 70 ms QT Int : 374 ms P-R-T Axes : 12 48 29 degrees QTcB Int : 403 ms Normal sinus rhythm Low voltage QRS Borderline ECG Confirmed by Ran Saldivar ([id number]), news editor ANGELICA ISIDRO ([id number]) on 08/02/2024 1:04:21 PM Referred By: Confirmed By: Ran Saldivar
--- NOTE | 2024-07-28 15:23 | EDS_ITS ---
HPI History of Present Illness Chief Complaint: Lower Extremity Injury Informant: patient Onset/Context/Timing Onset: Today and Yesterday Context: Gradual Onset Timing: Continuous Current Severity: Mild Maximum Severity: Mild Narrative Narrative: 24-year-old female history of anemia bipolar, diabetes hypertension prior drug abuse. Complaining of bilateral lower extremity edema since yesterday. Prior history which is but denies being . Denies any fall injury or trauma. No history of DVT or PE. No recent risk factors. Still urinating. Denies any kidney disease. Denies recent illness such as vomiting or diarrhea. Denies recent fever. No chest pain or shortness of breath. Prior similar symptoms: Yes Recent Illness/Hospitalization: No PFSH PFSH Medical History Opiate addiction Anemia due to blood loss Syphilis affecting Genital herpes affecting Gonorrhea affecting Chlamydia infection affecting hemorrhage Hepatitis Depression Anxiety Psychiatric disorder Encounter for planned induction of labor History of hemorrhage History of bipolar disorder History of herpes genitalis Limited care History of chlamydia History of syphilis 37 weeks gestation of Marijuana use during History of drug use Tobacco use affecting , antepartum Obesity History of pre-eclampsia Chronic hypertension Type 2 diabetes mellitus Hypertension Diabetes Home Medications ?Medication ?Instructions ?Recorded ?Last Taken ?Type penicillin V potassium 500 mg 500 mg PO TID #30 tabs 0 11/26/22 Unknown Rx tablet Allergy/AdvReac Type Severity Reaction Status Date / Time No Known Allergies Allergy Verified 07/28/24 13:48 Surgical History Delivery by section History of surgery Social History Smoking Status: Heavy Smoker (>10/day) substance use type: marijuana, heroin and methamphetamine ROS ROS ED ROS Narrative Denies recent illness. Bilateral lower extremity edema. Constitutional Constitutional ED: Denies chills or fever(s) Eyes Eyes: Denies blurry vision ENT ENT ED: Denies ear pain Cardiovascular Cardiovascular: Denies chest pain, palpitations or racing heartbeat Respiratory/Chest Respiratory/Chest: Denies cough, dyspnea or dyspnea on exertion Gastrointestinal Gastrointestinal: Denies abdominal pain, diarrhea, nausea or vomiting Genitourinary Genitourinary ED: Denies dysuria or hematuria Musculoskeletal Musculoskeletal: Denies arthralgias or back pain Integumentary Denies abscess Neurologic Neurologic: Denies headache(s) Psychiatric Psychiatric: Denies anxiety Endocrine Endocrinology: Denies cold intolerance Hematologic/Lymphatic Hematologic/Lymphatic: Reports none Allergic/Immunologic Allergic/Immunologic ED: Denies mouth swelling, tongue swelling or urticaria EXAM Physical Exam Narrative Exam Narrative: Well-appearing 24-year-old female. Vital signs are stable afebrile. Sitting upright in bed. Pulse ox 98% on room air no hypoxia. No distress. No family currently with her. H EENT exam pupils round reactive light. Moist mucous membranes. Neck nontender. No JVD. No lymphadenopathy. Lungs clear to auscultation bilateral. Heart regular rhythm rate about 105 no murmur. Chest wall ribs nontender. Abdomen soft nontender. Back nontender. Moving all 4 extremities. 1+ pitting edema both lower extremities. Equal symmetrical. Calves are nontender without edema or cords. Normal dorsi plantarflexion. Normal range of motion. Normal DP pulses. Normal strength and sensation. Upper extremities are unremarkable with normal strength. Neurologically she is awake and alert. No focal motor deficits. Answering questions following commands. Other than the lower extremity edema she has very benign exam. Const Vital Signs: 07/28/24 13:48 07/28/24 14:55 Temperature 98.1 F Temperature Source Oral Pulse Rate 106 H Respiratory Rate 19 H Respiratory Effort Normal Non-Labored Blood Pressure 129/89 H Blood Pressure Mean 102 Pulse Ox 98 Oxygen Delivery Method Room Air Positive well nourished, well developed and obese; Negative for cachectic, contractures or unkempt General Appearance ED: well developed and NAD; Negative for unkempt, cachectic, contractures, cyanotic, diaphoretic or pallor Nutritional Appearance: obese; Negative for cachectic HEENT Reports moist mucous membranes Negative for trauma or tenderness Eyes PERRL and EOMs intact bilaterally General Eye ED: Negative for pale conjunctiva or scleral icterus Neck no lymphadenopathy, supple and no JVD General: Negative for tenderness Lymph Lymphatic: Negative for other Chest Wall inspection of chest normal and palpation of chest normal Resp normal respiratory effort and clear to auscultation bilaterally Effort and Inspection: Negative for retractions Auscultation: Negative for rales, rhonchi, wheezes or diminished lung sounds Cardio regular rhythm, S1 normal heart sound, S2 normal heart sound and no murmurs; Negative for regular rate Rate: tachycardic GI normal to inspection, nondistended, normoactive bowel sounds, non-tender, non- distended and no masses Inspection: Negative for abdominal distention Auscultation: normoactive bowel sounds Palpation: soft; Negative for tender, guarding or rebound tenderness present Back/Spine no CVA tenderness General Back: Negative for CVA tenderness Cervical Spine: Negative for cervical spine tenderness Thoracic Spine / Upper Back: Negative for thoracic spinal tenderness or paraspinal muscle tenderness Lumbar Spine / Lower Back: Negative for lumbar spinal tenderness Extremity Negative for normal to inspection Extremity Narrative: Bilateral lower extremity 1+ pitting edema. Nontender. No cords. No cellulitis. Normal strength. Normal sensation. Normal range of motion. General Extremety ED: Yes edema; Negative for tenderness General Extremity: edema Neuro oriented x3 and CN's II-XII intact bilaterally Sensorium / Orientation: alert; Negative for orientation impaired, lethargic or stuporous Motor Exam: strength 5/5 throughout Psych mental status grossly normal Appearance: Negative for unkempt Attitude: No agitated Mood & Affect: Negative for depressed, anxious or tearful Skin no rashes or lesions noted, no wounds and skin turgor normal General Skin Exam: Negative for jaundice or pallor Lesions: No lesion noted Rashes: No rashes noted Trauma: Negative for abrasion Wounds: Negative for wounds noted MDM MDM MDM Narrative Medical decision making narrative: 24-year-old female bilateral lower extremity edema differential would include venous stasis, volume overload, CHF, dysrhythmia, kidney disease, ulcer -induced edema etc. Screening labs to be obtained. I do not think she needs any imaging of her legs.. She has never had a DVT or PE. Unlikely to have bilateral. She has no risk factors. Repeat exam unchanged. Patient be discharged home with outpatient follow-up. History & Record Review Discussion w/independent historian: Patient Additional record(s) reviewed:: Prior inpatient record, Prior outpatient record, Prior ED visit and Prior labs Lab Data Attestation: I reviewed the patient's lab results. Lab results narrative: CBC shows a white count of 5 H&H 11.5 and 35.5. Platelets 210. Electrolytes show sodium 139 gap 11. Normal BUN 11 creatinine 0.58. Liver enzymes unremarkable. test negative. Chest x-ray unremarkable normal cardiac silhouette. EKG normal sinus rhythm. Labs: Laboratory Results - last 24 hr 07/28/24 15:03 WBC 5.5 RBC 4.27 Hgb 11.5 L Hct 35.5 L MCV 83.1 MCH 26.9 L MCHC 32.4 RDW Std Deviation 42.1 RDW Coeff of [place] 13.9 Plt Count 210 MPV 9.8 Immature Gran % (Auto) 0.200 Neut % (Auto) 42.8 L Lymph % (Auto) 43.3 H [place] % (Auto) 7.5 Eos % (Auto) 5.5 H Baso % (Auto) 0.7 Absolute Neuts (auto) 2.3 Absolute Lymphs (auto) 2.36 Nucleated RBC % 0 Sodium 139 Potassium 4.2 Chloride 102 Carbon Dioxide 25.8 Anion Gap 11 BUN 11 Creatinine 0.58 L Estim Creat Clear Calc 175.95 Est GFR (MDRD) Non-Af 129 BUN/Creatinine Ratio 18.3 Glucose 92 Calcium 9.4 Total Bilirubin 0.70 AST 19 ALT 11 Alkaline Phosphatase 76 Total Protein 7.4 Albumin 4.1 Globulin 3.2 Albumin/Globulin Ratio 1.3 Serum , Qual NEGATIVE Radiography Chest X-Ray - ED: 2 View, Read by ED Physician, Read by Radiologist, Normal, Heart, Lungs, Mediastinum, Bony Structures and No Acute Disease Diagnostic Testing: Clinical Impression(s) from Imaging Studies Chest X-Ray 07/28/24 15:32 IMPRESSION: NO ACUTE FINDINGS. Reading Location: [facility] Chest x-ray, 2 views, interpreted both by myself and radiologist as no acute abnormality. Normal cardiac silhouette. Normal mediastinum. No effusions. No pulmonary edema. Rhythm Strip Rhythm Strip: Sinus Rhythm Rate: 70 Ectopy: None EKG Initial EKG: Attestation: I personally reviewed and interpreted this EKG as follows: Interpretation: Sinus Rhythm and No Acute Injury Pattern Comments: Normal sinus rhythm rate of 70 no acute signs of MN or ischemia Discharge Plan Triage Chief Complaint: Lower Extremity Injury ED Provider: Malik Lemus Dx/Rx/DC Orders Clinical Impression: Edema of both lower legs due to peripheral venous insufficiency, History of diabetes mellitus, History of bipolar disorder Instructions: ED Peripheral Edema, Bilateral Prescriptions: No Action penicillin V potassium 500 mg tablet 500 mg PO TID Qty: 30 0RF Primary Care Provider: Care Physician,No Primary Referrals: Care Physician,No Primary [Primary Care Provider] - Activity Restrictions/Additional Instructions: Follow-up with your primary care physician. Elevate your legs. Your labs, EKG and chest x-ray were all normal. Print Language: Lithuanian Disposition Disposition: Home, Self Care
[2024-07-28 15:27] LABS: Absolute Lymphocyte Count 2.36 X10^3/uL (0.83-4.51); Absolute Neutrophil Count 2.3 X10^3/uL (2.0-7.7); Basophil# 0.04 X10^3/uL; Basophil% 0.7 % (0-1); Eosinophils% 5.5 % (0-5); Hematocrit 35.5 % (37-47); Hemoglobin 11.5 g/dL (12.0-15.0); Lymphocyte # 2.36 X10^3/ul (0.83-4.51); Lymphocyte % 43.3 % (19-41); Mean Corp Hgb Conc 32.4 g/dL (32-36); Mean Corpuscular Hgb 26.9 pg (27.0-32.0); Mean Corpuscular Volume 83.1 fL (81-99); Mean Platelet Vol. 9.8 fl (6.2-12.0); Monocyte# 0.41 X10^3/uL; Monocyte% 7.5 % (0-10); NRBC Flagged by Analyzer 0 % (0-5); Neutrophil # 2.33 X10^3/uL (2.7-7.7); Neutrophil % 42.8 % (47-70); Platelet Count 210 K/mm3 (150-450); RBC Distribution Width CV 13.9 % (11.6-14.6); RBC Distribution Width SD 42.1 fl (35.1-43.9); Red Blood Count 4.27 M/mm3 (4.2-5.4); White Blood Count 5.5 K/mm3 (4.4-11.0)
[2024-07-28 15:31] LABS: Internal QC Validated? YES +Cl - CLEAR BKGD; Record Kit Lot#, Serum Preg. 929381
--- NOTE | 2024-07-28 15:32 | RAD_ITS ---
PROCEDURE: CHEST PA AND LATERAL 07/28/2024 REASON FOR EXAM: EDEMA TECHNIQUE: Frontal and lateral views of the chest. FINDINGS: Hardware: Unremarkable. Heart: The heart size is normal. Mediastinum: The mediastinal contour is unremarkable. Lungs: The lungs are clear. Bones: Dextroscoliosis of the thoracic spine. RAD/Chest PA and Lateral IMPRESSION: NO ACUTE FINDINGS. Reading Location: [id number]
[2024-07-28 15:36] LABS: Pregnancy, Serum, hCG Quali. NEGATIVE Negative
[2024-07-28 16:11] LABS: ALB/GLOB Ratio 1.3 RATIO (0.9-2.4); AST(SGOT) 19 U/L (<=31); Alanine Aminotransfer ALT/SGPT 11 U/L (<=34); Albumin, Serum 4.1 g/dL (3.5-5.0); Alkaline Phosphatase 76 U/L (35-104); Anion Gap 11 (5-15); BUN 11 mg/dL (4-19); BUN/Creat Ratio 18.3 RATIO (10-20); Calcium,Total 9.4 mg/dL (7.6-11.0); Carbon Dioxide 25.8 mmol/L (21.0-32.0); Chloride 102 mmol/L (98-108); Creatinine, Serum 0.58 mg/dL (0.70-1.20); EST Glomerular Filtration Rate 129 (>60); Estimated Creatinine Clearance 175.95 ml/min (50-250); Globulin 3.2 g/dL (2.2-4.2); Glucose 92 mg/dL (70-99); Potassium 4.2 mmol/L (3.3-5.1); Protein, Total 7.4 g/dL (5.9-8.4); Sodium Level 139 mmol/L (133-145)
[2024-07-28 17:10] VITALS: BP 126/74; PULSE 89; RESP 16; TEMP 36.7; O2SAT 100
== END 2024-07-28 17:15 | disposition home or self-care (01) ==
PROVIDERS: Emergency Provider Emergency Medicine; Visit Provider Emergency Medicine
DX: R60.0 Localized edema (principal); F31.9 Bipolar disorder, unspecified; I10 Essential (primary) hypertension; F17.200 Nicotine dependence, unspecified, uncomplicated
CPT/HCPCS: 71046; 80053; 84703; 85025; 93005; 99283